=== PATIENT | male | born 1965 | race American Indian/Alaskan Native ===

== ENCOUNTER 2017-06-18 12:36 | Emergency (ER) | payer OTHER ==
[2017-06-18 12:48] VITALS: BP 168/96
[2017-06-18] MEDS ORDERED: MOTRIN PO ONE (13:00)
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
[2017-06-18] MEDS ORDERED: ULTRAM PO ONE (16:08)
[2017-06-18] MEDS ORDERED: ULTRAM ONE (16:08)
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
== END 2017-06-18 16:59 | disposition home or self-care (01) ==
LOC: ED 12:36
DX: S93.401A Sprain of unspecified ligament of right ankle, initial encounter (principal); I10 Essential (primary) hypertension; F17.200 Nicotine dependence, unspecified, uncomplicated; W18.30XA Fall on same level, unspecified, initial encounter; Y93.89 Activity, other specified; Y92.89 Other specified places as the place of occurrence of the external cause; Y99.8 Other external cause status
CPT/HCPCS: 99283

== ENCOUNTER 2017-10-01 10:40 | Emergency (ER) | payer SELFPAY ==
--- NOTE | 2017-10-01 10:53 | Emergency Department Report ---
ED Chest Pain HPI - General Stated Complaint: CHEST PAIN Time Seen by Provider: 10/01/17 10:40 Source: patient, EMS Mode of arrival: Stretcher Limitations: No Limitations - History of Present Illness Initial Comments: is a 52-year-old male presents emergency room with complaints of chest pain 1 day. Patient states that the pain is in his bilateral upper chest and radiates to his shoulders. Patient states that he is also having shoulder pain 1 day. Patient states that the chest pain is a 4 out of 10. Patient states that the shoulder pain is a 10 out of 10. Patient states that the shoulder pain is worse with movement and better with rest. Patient states that the chest pain is also better with rest and worse with exertion. Patient is a smoker. Patient also has a history of high blood pressure but does not take his medications due to not having insurance and not being able to afford doctors visit and prescriptions. Patient denies shortness of breath. Patient states that this morning he began to feel dizzy with movement and that is why he called EMS to be brought to the hospital for evaluation. -: Sudden Onset: during rest Pain Location: substernal Pain Radiation: RUE, LUE Severity: moderate Severity scale (0 -10): 4 Quality: aching, heaviness Consistency: constant Improves With: rest Worsens With: exertion re: denies: nausea, vomting, diaphoresis, dyspnea, sense of impending doom Other Symptoms: denies: cough, fever, syncope, rash, acid taste in mouth, leg swelling, palpitations, burping Treatments Prior to Arrival: aspirin, nitroglycerin Aspirin use within the Past 7 Days: (0) No - Related Data On Oral Contraceptives: No Previous Rx's Medication Instructions Recorded Last Taken Type HYDROcodone/APAP 7.5-325 [[place] 1 each PO Q6HR PRN #10 tablet 12/11/15 Unknown Rx 7.5/325] Ibuprofen [Motrin] 800 mg PO Q8HR PRN #30 tablet 12/11/15 Unknown Rx Ibuprofen [Motrin] 600 mg PO Q8H PRN #30 tablet 06/18/17 Unknown Rx Lisinopril/Hydrochlorothiazide 1 tab PO QDAY #60 tab 10/01/17 Unknown Rx [Zestoretic 20-12.5 mg] Allergies Allergy/AdvReac Type Severity Reaction Status Date / Time No Known Allergies Allergy Verified 12/11/15 19:56 Heart Score - HEART Score History: Moderately suspicious EKG: Non-specific Age: 45-65 Risk factors: 1-2 risk factors Troponin: < normal limit HEART Score: 4 ED Review of Systems ROS: Stated complaint: CHEST PAIN Other details as noted in HPI Constitutional: denies: chills, fever Eyes: denies: eye pain, eye discharge, vision change ENT: denies: ear pain, throat pain Respiratory: denies: cough, shortness of breath, wheezing Cardiovascular: denies: chest pain, palpitations Endocrine: no symptoms reported Gastrointestinal: denies: abdominal pain, nausea, diarrhea Genitourinary: denies: urgency, dysuria Musculoskeletal: denies: back pain, joint swelling, arthralgia Skin: denies: rash, lesions Neurological: denies: headache, weakness, paresthesias Psychiatric: denies: anxiety, depression Hematological/Lymphatic: denies: easy bleeding, easy bruising ED Past Medical Hx - Past Medical History Previous Medical History?: Yes Hx Hypertension: Yes Additional medical history: THYROID, right ankle surgery - Surgical History Past Surgical History?: Yes Additional Surgical History: RIGHT KNEE/RIGHT LEG / EYE, Right ankle surgery - Family History Family history: hypertension - Social History Smoking Status: Current Every Day Smoker Substance Use Type: Alcohol - Medications Home Medications: Home Medications Medication Instructions Recorded Confirmed Last Taken Type HYDROcodone/APAP 7.5-325 [[place] 1 each PO Q6HR PRN #10 tablet 12/11/15 Unknown Rx 7.5/325] Ibuprofen [Motrin] 800 mg PO Q8HR PRN #30 tablet 12/11/15 Unknown Rx Ibuprofen [Motrin] 600 mg PO Q8H PRN #30 tablet 06/18/17 Unknown Rx Lisinopril/Hydrochlorothiazide 1 tab PO QDAY #60 tab 10/01/17 Unknown Rx [Zestoretic 20-12.5 mg] ED Physical Exam - General Limitations: No Limitations General appearance: alert, in no apparent distress - Head Head exam: Present: atraumatic, normocephalic - Eye Eye exam: Present: normal appearance, PERRL Pupils: Present: normal accommodation - ENT ENT exam: Present: mucous membranes moist - Neck Neck exam: Present: normal inspection - Respiratory Respiratory exam: Present: normal lung sounds bilaterally. Absent: respiratory distress, chest wall tenderness, accessory muscle use, decreased breath sounds - Cardiovascular Cardiovascular Exam: Present: regular rate, normal rhythm. Absent: systolic murmur, diastolic murmur, rubs, gallop - GI/Abdominal GI/Abdominal exam: Present: soft, normal bowel sounds - Rectal Rectal exam: Present: deferred - Extremities Exam Extremities exam: Present: normal inspection, tenderness (over both shoulder joints) - Back Exam Back exam: Present: normal inspection - Neurological Exam Neurological exam: Present: alert, oriented X3 - Psychiatric Psychiatric exam: Present: normal affect, normal mood - Skin Skin exam: Present: warm, dry, intact, normal color. Absent: rash ED Course Vital Signs 10/01/17 10/01/17 10/01/17 10:46 11:50 14:48 Temperature 98 F Pulse Rate 72 78 Respiratory 20 16 16 Rate Blood Pressure 151/96 Blood Pressure 158/114 [Left] O2 Sat by Pulse 95 97 Oximetry 10/01/17 10/01/17 15:00 17:00 Temperature Pulse Rate 77 77 Respiratory 15 15 Rate Blood Pressure Blood Pressure 153/99 151/97 [Left] O2 Sat by Pulse 94 94 Oximetry - Reevaluation(s) Reevaluation #1: Patient complains of anxiety and panic attack and increase chest pain. Patient states now the chest pain is more substernal. We'll give patient ativan and morphine. 10/01/17 13:36 10/01/17 13:36 Reevaluation #2: Dr. Reeves, hospitalist consulted for admission. Dr. Reeves agrees to admit. Dr. Bingham to assume care patient. Discussed plan of care and admission with patient and patient agrees to plan of care. 10/01/17 13:57 CHING score - Ching Score Age > 65: (0) No Aspirin use within the Past 7 Days: (0) No 3 or more CAD Risk Factors: (0) No 2 or more Angina events in past 24 hrs: (0) No Known CAD with more than 50% Stenosis: (0) No Elevated Cardiac Markers: (0) No ST Deviation Greater than 0.5mm: (0) No CHING Score: 0 ED Medical Decision Making - Lab Data Result diagrams: 10/01/17 11:07 10/01/17 11:07 - EKG Data -: EKG Interpreted by Me EKG shows normal: sinus rhythm, axis, intervals, QRS complexes, ST-T waves Rate: normal - Radiology Data Radiology results: report reviewed CTA: No PE. Positive for 4.8cm Thoracic aorta aneurysm. - Medical Decision Making Patient is a 2-year-old milligrams emergency room with chest pain and shoulder pain. Chest pain workup so far is negative. Will admit patient to hospital for further evaluation and treatment. Patient also be admitted to rule out ACS - Differential Diagnosis acs. cp. anx.gerd./ htn Critical care attestation.: If time is entered above; I have spent that time in minutes in the direct care of this critically ill patient, excluding procedure time. ED Disposition Clinical Impression: Shoulder arthritis Chest pain Qualifiers: Chest pain type: unspecified Qualified Code(s): R07.9 - Chest pain, unspecified Bilateral shoulder pain Qualifiers: Chronicity: acute Qualified Code(s): M25.511 - Pain in right shoulder; M25.512 - Pain in left shoulder Aortic aneurysm Qualifiers: Aortic location: thoracic aorta Presence of rupture: without rupture Qualified Code(s): I71.2 - Thoracic aortic aneurysm, without rupture Disposition: 09 OP ADMIT IP TO THIS HOSP Is pt being admited?: Yes Does the pt Need Aspirin: No Condition: Serious Prescriptions: Lisinopril/Hydrochlorothiazide [Zestoretic 20-12.5 mg] 1 tab PO QDAY #60 tab Time of Disposition: 14:01
[2017-10-01 11:40] LABS: Basophils % (Auto) 0.8 % (0.0-1.8); Eosinophils # (Auto) 0.1 K/mm3 (0.0-0.4); Eosinophils % (Auto) 1.4 % (0.0-4.3); Hematocrit 43.8 % (35.5-45.6); Hemoglobin 15.1 gm/dl (11.8-15.2); Lymphocytes # (Auto) 0.8 K/mm3 (1.2-5.4); Mean Corpuscular HGB Conc 35 % (32-34); Mean Corpuscular Hemoglobin 32 pg (28-32); Mean Corpuscular Volume 92 fl (84-94); Monocytes # (Auto) 0.5 K/mm3 (0.0-0.8); Monocytes % (Auto) 9.8 % (0.0-7.3); Platelet Count 154 K/mm3 (140-440); Red Blood Count 4.75 M/mm3 (3.65-5.03); Red Cell Distribution Width 16.3 % (13.2-15.2)
[2017-10-01 11:48] LABS: Alanine Aminotransferase 18 units/L (7-56); BUN/Creatinine Ratio 14; Blood Urea Nitrogen 11 mg/dL (9-20); Calcium 9.3 mg/dL (8.4-10.2); Hemolysis Index 9
[2017-10-01 12:21] LABS: Bilirubin,Urine NEG (Negative); Blood,Urine SM (Negative); Color,Urine Yellow (Yellow); WBC,Urine < 1.0 /HPF (0.0-6.0)
[2017-10-01 12:30] LABS: Amphetamine Screen,Urine PRESUMPTIVE NEGATIVE; Benzodiazepines Screen,Urine PRESUMPTIVE NEGATIVE; Cocaine Screen,Urine PRESUMPTIVE NEGATIVE; Methadone Screen,Urine PRESUMPTIVE NEGATIVE; Opiate Screen,Urine PRESUMPTIVE NEGATIVE
[2017-10-01 12:51] LABS: Cannabinoid Screen,Urine PRESUMPTIVE POSITIVE
--- NOTE | 2017-10-01 12:53 | XRay Report ---
FINAL REPORT EXAM: XR SHOULDER BILAT 2+V HISTORY: joyce shoulder pain TECHNIQUE: Four views of the left shoulder. Three views of the right shoulder. PRIORS: None. FINDINGS: No fracture. No dislocation. There is diffuse osteopenia. No soft tissue abnormality. Mild degenerative changes of the bilateral glenohumeral joints are seen. Mild degenerative changes of the left acromioclavicular joint are seen. There is likely been prior right distal clavicle osteotomy. IMPRESSION: Early osteoarthritis of the shoulders.
[2017-10-01] MEDS ORDERED: ATIVAN IV ONE (13:34)
[2017-10-01] MEDS ORDERED: MORPHINE IV ONE (13:34)
--- NOTE | 2017-10-01 13:38 | XRay Report ---
FINAL REPORT EXAM: XR CHEST ROUTINE 2V HISTORY: Chest Pain TECHNIQUE: Frontal and lateral chest radiographs. PRIORS: None. FINDINGS: The lung bases were not completely included on the frontal view. There is prominence of the right hilar contour. No focal consolidation. The cardiac silhouette is nonenlarged. No pleural effusion. No pneumothorax. No acute osseous abnormality. IMPRESSION: Prominent right hilar contour may represent lymphadenopathy or a vascular abnormality. Recommend further evaluation with CT of the chest with contrast.
--- NOTE | 2017-10-01 13:50 | Cat Scan Report ---
FINAL REPORT EXAM: CT ANGIO CHEST HISTORY: cp. d-dimer TECHNIQUE: CTA of the chest was performed after the administration of intravenous contrast. Reconstructions were included in the coronal and sagittal planes. Rotating MIPS were included. PRIORS: Chest x-ray from earlier today. FINDINGS: Pulmonary arteries and thoracic aorta: The study is adequate for diagnostic purposes. No central or segmental pulmonary embolism. Ascending thoracic aortic aneurysm is seen measuring up to 4.8 centimeters AP. No evidence of aortic dissection. No evidence of aneurysm rupture. No penetrating ulcer. The descending thoracic aorta is at the upper limits of normal in caliber measuring 2.9 centimeters. The main pulmonary artery is dilated measuring up to 4.0 centimeters. Lungs and airways: No pleural effusion. No airspace consolidation. The airways are patent. No bronchiectasis. No pulmonary nodules or masses. Several subpleural blebs are seen in the lung apices. Mediastinum, heart, pericardium: No mediastinal lymphadenopathy. No cardiac chamber enlargement. No pericardial effusion. Thoracic inlet, chest wall, axilla: No chest wall masses. The thyroid gland is mildly diffusely enlarged. No axillary lymphadenopathy. Upper abdomen: There is a small hiatal hernia. There is wall thickening along the posterior aspect of the gastric fundus. Bones: No acute or chronic osseous finding. IMPRESSION: 1. 4.8 centimeter ascending thoracic aortic aneurysm. 2. Enlarged main pulmonary artery can be seen in pulmonary arterial hypertension. 3. Apparent thickening of the posterior aspect of the gastric fundus may represent residual food material versus gastric neoplasm. Recommend further evaluation with EGD when feasible. 4. Diffusely enlarged thyroid gland can be seen in goiter.
--- NOTE | 2017-10-01 14:10 | History and Physical Report ---
History of Present Illness Chief complaint: my chest hurts, I ran out of medication History of present illness: 52 YO Male with HTN, Nicotine Dependence, medication noncompliance presents to ED for evaluation of Atypical chest pain. Pt seen and evaluated in ED and treated IAW chest pain protocol. Serial cardiac enzyme, ekg, telemetry wer n ot indicative for acute ischemia. Pt found to have elevated D dimer, but CTA chest did not reveal PE. Pt found to have incidental finding of Aortic Aneurysm without dissection/flap at 4.8cm. Pt medically optimized and back to usual state of health. Pt signed out AMA prior to completion of workup. Pt instructed to f/u pcp 1 wk, as well as to have repeat CTA chest 3-6 months for reevaluation. Past History Past Medical History: hypertension Past Surgical History: thyroidectomy Social history: smoking Family history: no significant family history (reviewed) Medications and Allergies Allergies Allergy/AdvReac Type Severity Reaction Status Date / Time No Known Allergies Allergy Verified 12/11/15 19:56 Home Medications Medication Instructions Recorded Confirmed Last Taken Type HYDROcodone/APAP 7.5-325 [[place] 1 each PO Q6HR PRN #10 tablet 12/11/15 Unknown Rx 7.5/325] Ibuprofen [Motrin] 800 mg PO Q8HR PRN #30 tablet 12/11/15 Unknown Rx Ibuprofen [Motrin] 600 mg PO Q8H PRN #30 tablet 06/18/17 Unknown Rx Lisinopril/Hydrochlorothiazide 1 tab PO QDAY #60 tab 10/01/17 Unknown Rx [Zestoretic 20-12.5 mg] Review of Systems Constitutional: no weight loss, no weight gain, no fever, no chills Ears, nose, mouth and throat: no ear pain, no ear discharge, no tinnitis, no decreased hearing, no nasal congestion, no nasal discharge, no sinus pain Cardiovascular: no chest pain, no orthopnea, no palpitations, no rapid/ irregular heart beat Respiratory: no cough, no cough with sputum, no excessive sputum, no hemoptysis , no shortness of breath, no dyspnea on exertion Gastrointestinal: no nausea, no vomiting, no diarrhea Genitourinary Male: no dysuria, no hematuria, no urinary frequency, no nocturia , no erectile dysfunction Rectal: no pain, no incontinence, no bleeding Musculoskeletal: no neck stiffness, no neck pain, no shooting arm pain, no arm numbness/tingling, no low back pain, no leg numbness/tingling Integumentary: no rash, no pruritis, no redness, no sores, no wounds, no jaundice Neurological: no head injury, no transient paralysis, no paralysis, no weakness , no parathesias, no tingling, no seizures, no syncope Psychiatric: no anxiety, no memory loss, no change in sleep habits, no sleep disturbances, no insomnia, no hypersomnia, no change in appetite, no change in libido, no disorientation Endocrine: no cold intolerance, no heat intolerance, no polyphagia, no excessive thirst, no polyuria, no excessive sweating, no flushing Hematologic/Lymphatic: no easy bruising, no easy bleeding, no lymphadenopathy, no lymphedema Allergic/Immunologic: no urticaria, no allergic rhinitis, no wheezing, no persistent infections, no anaphylaxis, no angioedema Exam - Constitutional Vitals: Temp Pulse Resp BP Pulse Ox 98 F 72 16 151/96 95 10/01/17 10:46 10/01/17 10:46 10/01/17 11:50 10/01/17 10:46 10/01/17 10:46 General appearance: Present: no acute distress, well-nourished - EENT Eyes: Present: PERRL ENT: hearing intact, clear oral mucosa - Neck Neck: Present: supple, normal ROM - Respiratory Respiratory effort: normal Respiratory: bilateral: CTA - Cardiovascular Heart Sounds: Present: S1 & S2. Absent: rub, click - Extremities Extremities: pulses symmetrical, No edema Peripheral Pulses: within normal limits - Abdominal General gastrointestinal: Present: soft, non-tender, non-distended, normal bowel sounds Male genitourinary: Present: normal - Integumentary Integumentary: Present: clear, warm, dry - Musculoskeletal Musculoskeletal: gait normal, strength equal bilaterally - Psychiatric Psychiatric: appropriate mood/affect, intact judgment & insight - Neurologic Neurologic: CNII-XII intact, moves all extremities Results - Labs CBC & Chem 7: 10/01/17 11:07 10/01/17 11:07 Labs: Abnormal lab results 10/01/17 10/01/17 10/01/17 Range/Units 11:07 11:07 11:07 MCHC 35 H (32-34) % RDW 16.3 H (13.2-15.2) % Baker % (Auto) 9.8 H (0.0-7.3) % Lymph # 0.8 L (1.2-5.4) K/mm3 Seg Neutrophils % 74.0 H (40.0-70.0) % D-Dimer 240.91 H (0-234) ng/mlDDU Potassium 3.3 L (3.6-5.0) mmol/L Total Bilirubin 1.40 H (0.1-1.2) mg/dL Assessment and Plan - Patient Problems (1) Atypical chest pain Status: Acute Plan to address problem: serial cardiac enzymes, ekg, telemetry, d dimer, CTA chest. Pt left AMA (2) Aortic aneurysm Status: Acute Qualifiers: Aortic location: thoracic aorta Presence of rupture: without rupture Qualified Code(s): I71.2 - Thoracic aortic aneurysm, without rupture Plan to address problem: repeat CTA chest 3-6 months (3) Bilateral shoulder pain Status: Acute Qualifiers: Chronicity: acute Qualified Code(s): M25.511 - Pain in right shoulder; M25.512 - Pain in left shoulder Plan to address problem: nsaid therapy
[2017-10-01] MEDS ORDERED: HCTZ PO ONE (14:13)
[2017-10-01] MEDS ORDERED: ZESTRIL PO ONE (14:13)
[2017-10-01 17:02] VITALS: BP 151/97
== END 2017-10-01 17:39 | disposition admitted as inpatient to this hospital (09) ==
LOC: ED 10:40
DX: I71.2 Thoracic aortic aneurysm, without rupture (principal); M25.511 Pain in right shoulder; M25.512 Pain in left shoulder; I10 Essential (primary) hypertension; F17.200 Nicotine dependence, unspecified, uncomplicated
CPT/HCPCS: 36415; 71046; 71275; 73030; 80053; 80307; 81001; 84484; 85025; 85379; 93005; 93010; 96374; 96375; 99285; J2060; J2270; Q9967

== ENCOUNTER 2020-06-28 07:10 | Emergency (ER) | payer SELFPAY ==
--- NOTE | 2020-06-28 07:44 | Emergency Department Report ---
ED Extremity Problem HPI - General Stated complaint: R LEG PAIN - History of Present Illness Initial comments: Is a pleasant 55-year-old male who presents the emergency department chief complaint of right lateral knee pain over the past 2 days. Patient reports he was walking to the store and started to feel the pain shortly after. He denies any specific injuries. He does report he has had an ORIF of the leg with rods in the past. He denies any other associated symptoms such as fever, chills, sweats, headache, dizziness, blurry vision, nausea, vomiting, diarrhea, chest pain, shortness of breath, weakness or any other associated symptoms. Pain is 10 out of 10 describes dull and throbbing and located to the lateral side of the knee. - Related Data Previous Rx's Medication Instructions Recorded Last Taken Type HYDROcodone/APAP 7.5-325 [[place] 1 each PO Q6HR PRN #10 tablet 12/11/15 Unknown Rx 7.5/325] Ibuprofen [Motrin] 800 mg PO Q8HR PRN #30 tablet 12/11/15 Unknown Rx Ibuprofen [Motrin] 600 mg PO Q8H PRN #30 tablet 06/18/17 Unknown Rx Lisinopril/Hydrochlorothiazide 1 tab PO QDAY #60 tab 10/01/17 Unknown Rx [Zestoretic 20-12.5 mg] Naproxen 500 mg PO BID #20 tablet 06/28/20 Unknown Rx traMADoL [Ultram 50 MG tab] 50 mg PO Q6HR PRN #12 tablet 06/28/20 Unknown Rx Allergies Allergy/AdvReac Type Severity Reaction Status Date / Time No Known Allergies Allergy Verified 12/11/15 19:56 ED Review of Systems ROS: Stated complaint: R LEG PAIN Other details as noted in HPI Comment: All other systems reviewed and negative Constitutional: denies: chills, fever Eyes: denies: eye pain, eye discharge, vision change ENT: denies: ear pain, throat pain Respiratory: denies: cough, shortness of breath, wheezing Cardiovascular: denies: chest pain, palpitations Endocrine: no symptoms reported Gastrointestinal: denies: abdominal pain, nausea, diarrhea Genitourinary: denies: urgency, dysuria Musculoskeletal: as per HPI, arthralgia. denies: back pain, joint swelling Skin: denies: rash, lesions Neurological: denies: headache, weakness, paresthesias Psychiatric: denies: anxiety, depression Hematological/Lymphatic: denies: easy bleeding, easy bruising ED Past Medical Hx - Past Medical History Hx Hypertension: Yes Additional medical history: THYROID, right ankle surgery - Surgical History Additional Surgical History: RIGHT KNEE/RIGHT LEG / EYE, Right ankle surgery - Social History Smoking Status: Current Every Day Smoker Substance Use Type: Alcohol - Medications Home Medications: Home Medications Medication Instructions Recorded Confirmed Last Taken Type HYDROcodone/APAP 7.5-325 [[place] 1 each PO Q6HR PRN #10 tablet 12/11/15 Unknown Rx 7.5/325] Ibuprofen [Motrin] 800 mg PO Q8HR PRN #30 tablet 12/11/15 Unknown Rx Ibuprofen [Motrin] 600 mg PO Q8H PRN #30 tablet 06/18/17 Unknown Rx Lisinopril/Hydrochlorothiazide 1 tab PO QDAY #60 tab 10/01/17 Unknown Rx [Zestoretic 20-12.5 mg] Naproxen 500 mg PO BID #20 tablet 06/28/20 Unknown Rx traMADoL [Ultram 50 MG tab] 50 mg PO Q6HR PRN #12 tablet 06/28/20 Unknown Rx ED Physical Exam - General General appearance: alert, in no apparent distress - Head Head exam: Present: atraumatic, normocephalic - Eye Eye exam: Present: normal appearance, PERRL, EOMI Pupils: Present: normal accommodation - ENT ENT exam: Present: normal exam, normal orophraynx, mucous membranes moist - Neck Neck exam: Present: normal inspection, full ROM. Absent: tenderness, meningismus - Respiratory Respiratory exam: Present: normal lung sounds bilaterally. Absent: respiratory distress, wheezes, rales, rhonchi, stridor - Cardiovascular Cardiovascular Exam: Present: regular rate, normal rhythm, normal heart sounds. Absent: systolic murmur, diastolic murmur, rubs, gallop - GI/Abdominal GI/Abdominal exam: Present: soft, normal bowel sounds. Absent: distended, tenderness, guarding, rebound, rigid - Rectal Rectal exam: Present: deferred - Extremities Exam Extremities exam: Present: normal inspection, full ROM, tenderness (Tenderness palpation to the lateral right knee. Surgical scar over the lateral right knee. Pain with range of motion. Pain with varus strain. No posterior calf tenderness, normal DP and PT pulses. No tenderness to the hip or ankle. No deformity.), normal capillary refill, other (Negative Homans' sign bilaterally). Absent: calf tenderness - Back Exam Back exam: Present: normal inspection, full ROM. Absent: tenderness, CVA tenderness (R), CVA tenderness (L), muscle spasm, paraspinal tenderness, vertebral tenderness - Neurological Exam Neurological exam: Present: alert, oriented X3, normal gait - Psychiatric Psychiatric exam: Present: normal affect, normal mood - Skin Skin exam: Present: warm, dry, intact, normal color. Absent: rash ED Course Vital Signs 06/28/20 07:39 Temperature 97.6 F Pulse Rate 83 Respiratory 18 Rate Blood Pressure 151/76 O2 Sat by Pulse 96 Oximetry ED Medical Decision Making - Radiology Data Radiology results: report reviewed Ordering Physician: ADELINE GUILLORY Date of Service: 06/28/20 Procedure(s): XR knee 3V RT Accession Number(s): [id number] cc: ADELINE GUILLORY Fluoro Time In Minutes: RIGHT KNEE 4 VIEWS 0800 INDICATION: pain to lateral right knee COMPARISON: None available FINDINGS: Surgical changes are seen in the tibia with plate and screws and intramedullary ana laura. Moderate degenerative changes are seen mostly affecting the patellofemoral and lateral compartments. Lateral joint space narrowing is noted. Medial ligamentous calcifications are seen. No fractures or dislocations are noted. Small joint effusion is seen. Signer Name: Yusuf Abraham MD Signed: 06/28/2020 8:37 AM Workstation Name: [id number] Transcribed By: GJ Dictated By: Yusuf Abraham MD Electronically Authenticated By: Yusuf Abraham MD Signed Date/Time: 06/28/20 0837 - Medical Decision Making Patient nontoxic in no acute distress. He had no posterior calf tenderness, normal DP and PT pulses and a negative Homans' sign making DVT unlikely. He also had a very low Wells risk for DVT. Patient had normal pedal pulses making ischemic leg unlikely. He had no rashes or signs of cellulitis. His exam was consistent with a lateral collateral ligament injury versus severe osteoarthritis. 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 We will treat the patient with anti-inflammatory pain medication and recommended orthopedic follow-up. He is instructed to return to the ER with any change or worsening symptoms. He verbalized understand the diagnosis, treatment and follow-up instructions and all his questions were answered. - Differential Diagnosis Osteoarthritis, DVT, sprain Critical care attestation.: If time is entered above; I have spent that time in minutes in the direct care of this critically ill patient, excluding procedure time. ED Disposition Clinical Impression: Right knee sprain Qualifiers: Encounter type: initial encounter Involved ligament of knee: lateral collateral ligament Qualified Code(s): S83.421A - Sprain of lateral collateral ligament of right knee, initial encounter Disposition: TO HOME OR SELFCARE Is pt being admited?: No Condition: Stable Instructions: Knee Sprain, Adult, [id number] Prescriptions: Naproxen 500 mg PO BID #20 tablet traMADoL [Ultram 50 MG tab] 50 mg PO Q6HR PRN #12 tablet PRN Reason: Pain Referrals: PRIMARY CAREMD [Primary Care Provider] - 3-5 Days BITA ALLEN MD [Staff Physician] - 3-5 Days Time of Disposition: 09:36
[2020-06-28 07:45] VITALS: BP 151/76
--- NOTE | 2020-06-28 08:42 | XRay Report ---
RIGHT KNEE 4 VIEWS 0800 INDICATION: pain to lateral right knee COMPARISON: None available FINDINGS: Surgical changes are seen in the tibia with plate and screws and intramedullary ana laura. Modera te degenerative changes are seen mostly affecting the patellofemoral and lateral compartments. Latera l joint space narrowing is noted. Medial ligamentous calcifications are seen. No fractures or disloca tions are noted. Small joint effusion is seen. Signer Name: Yusuf Abraham MD Signed: 06/28/2020 8:37 AM Workstation Name: [id number]
[2020-06-28] MEDS ORDERED: IBUPROFEN 600 MG TAB PO ONE (09:58)
== END 2020-06-28 10:19 | disposition home or self-care (01) ==
LOC: ED 07:10
DX: S83.421A Sprain of lateral collateral ligament of right knee, initial encounter (principal); I10 Essential (primary) hypertension; F17.200 Nicotine dependence, unspecified, uncomplicated; Z79.899 Other long term (current) drug therapy; Z98.890 Other specified postprocedural states; X58.XXXA Exposure to other specified factors, initial encounter; Y93.01 Activity, walking, marching and hiking; Y92.89 Other specified places as the place of occurrence of the external cause; Y99.8 Other external cause status

== ENCOUNTER 2020-08-21 07:29 | Emergency (ER) | payer SELFPAY ==
[2020-08-21 07:38] VITALS: BP 144/78
[2020-08-21] MEDS ORDERED: ALBUTEROL 2.5 MG/3 ML NEBU IH ONE (08:39)
--- NOTE | 2020-08-21 08:39 | Event Note ---
ED Screening Note ED Screening Note: WHEEZING COUGH CHILLS NO COVID IMMUNIZ RX OUT OF ALL MEDS FOR ASTHMA AND HTN PMH ASTHMA HTN CIG OCC ETOH PSH MINOR YEARS This initial assessment/diagnostic orders/clinical plan/treatment(s) is/are subject to change based on patients health status, clinical progression and re- assessment by fellow clinical providers in the ED. Further treatment and workup at subsequent clinical providers discretion. Patient/guardian urged not to elope from the ED as their condition may be serious if not clinically assessed and managed. Initial orders include: XR DUONEB
--- NOTE | 2020-08-21 09:08 | XRay Report ---
CHEST 2 VIEWS INDICATION: WHEEZING COUGH. COMPARISON: CT chest 10/01/2017 FINDINGS: Support devices: None. Heart: Heart size is normal. Mildly dilated ascending aorta is again suggested on x-ray. No mediastin al mass or adenopathy. Lungs/pleura: No acute air space or interstitial disease. No pneumothorax. Additional findings: None. IMPRESSION: No acute findings. Slightly prominent ascending aorta. Lungs clear. Signer Name: Charles Gomes Jr, MD Signed: 08/21/2020 9:04 AM Workstation Name: [id number]
[2020-08-21 10:11] LABS: Hematocrit 43.5 % (35.5-45.6); Hemoglobin 14.9 gm/dl (11.8-15.2); Mean Corpuscular HGB Conc 34 % (32-34); Mean Corpuscular Volume 99 fl (84-94); Platelet Count 147 K/mm3 (140-440); Red Cell Distribution Width 14.7 % (13.2-15.2)
[2020-08-21 10:36] LABS: Alanine Aminotransferase 28 units/L (7-56); Albumin 4.5 g/dL (3.9-5); BUN/Creatinine Ratio 13; Blood Urea Nitrogen 12 mg/dL (9-20); Calcium 8.7 mg/dL (8.4-10.2); Hemolysis Index 4
[2020-08-21] MEDS ORDERED: predniSONE 20 MG TAB PO ONE (10:48)
--- NOTE | 2020-08-21 10:51 | Emergency Department Report ---
Minor Respiratory - HPI Chief Complaint: Dyspnea/Respdistress Stated Complaint: SOB Time Seen by Provider: 08/21/20 10:48 Duration: 3 Days Pain Location: Chest Severity: mild Minor Respiratory: Yes Able to Tolerate Fluids, Yes Cough, Yes Shortness of Breath, No Rhinorrhea, No Sore Throat, No Ear Pain, No Sick Contacts, No Hemoptysis, No Chest Pain, No Fever Other History: It is a 55-year-old male that comes to the emergency room complaining of shortness of breath. He is well-known to us and here for recurrent asthma. He brings with him his numerous bags I believe he is homeless. ED Review of Systems ROS: Stated complaint: SOB Other details as noted in HPI Comment: All other systems reviewed and negative ED Past Medical Hx - Past Medical History Previous Medical History?: Yes Hx Hypertension: Yes Hx Asthma: Yes Additional medical history: THYROID, right ankle surgery - Surgical History Past Surgical History?: Yes Additional Surgical History: RIGHT KNEE/RIGHT LEG / EYE, Right ankle surgery - Family History Family history: no significant - Social History Smoking Status: Current Every Day Smoker Substance Use Type: Alcohol - Medications Home Medications: Home Medications Medication Instructions Recorded Confirmed Last Taken Type Lisinopril/Hydrochlorothiazide 1 tab PO QDAY #60 tab 10/01/17 Unknown Rx [Zestoretic 20-12.5 mg] traMADoL [Ultram 50 MG tab] 50 mg PO Q6HR PRN #12 tablet 06/28/20 Unknown Rx Albuterol Sulfate [Proventil Hfa] 6.7 gm IH Q4HR PRN #1 hfa.aer.ad 08/21/20 Unknown Rx Cetirizine HCl [ZyrTEC] 10 mg PO DAILY #30 capsule 08/21/20 Unknown Rx Fluticasone [Flonase] 1 spray NS QDAY #1 bottle 08/21/20 Unknown Rx predniSONE [Deltasone] 20 mg PO DAILY #5 tablet 08/21/20 Unknown Rx Minor Respiratory Exam - Exam General: Vital signs noted. No distress. Alert and acting appropriately. HEENT: Yes Moist Mucous Membranes, No Pharyngeal Erythema, No Pharyngeal Exudates, No Rhinorrhea, No Conjuctival Injection, No Frontal Tenderness, No Maxillary Tenderness Ear: Neither TM Bulge, Neither TM Erythema, Neither EAC Pain, Neither EAC Discharge Neck: Yes Supple, No Adenopathy Lungs: Yes Good Air Exchange, Yes Wheezes, No Ronchi, No Stridor, No Cough, No Labored Respirations, No Retractions, No Use of Accessory Muscles, No Other Abnormal Lung Sounds Heart: Yes Regular, No Murmur Abdomen: Yes Normal Bowel Sounds, No Tenderness, No Peritoneal Signs Skin: No Rash, No Edema Neurologic: Alert and oriented, no deficits. Musculoskeletal: Unremarkable. ED Course Vital Signs 08/21/20 07:33 Temperature 98.3 F Pulse Rate 99 H Respiratory 20 Rate Blood Pressure 144/78 [Right] O2 Sat by Pulse 96 Oximetry - Reevaluation(s) Reevaluation #1: 08/21/20 10:55 CAN NOT LOCATE PT IN WAITING ROOMS. CALLED SEVERAL TIMES ED Medical Decision Making - Lab Data Result diagrams: 08/21/20 09:30 08/21/20 09:30 - Radiology Data Radiology results: report reviewed, image reviewed - Medical Decision Making Labs 08/21/20 08/21/20 09:30 09:30 WBC 5.8 RBC 4.40 Hgb 14.9 Hct 43.5 MCV 99 H MCH 34 H MCHC 34 RDW 14.7 Plt Count 147 Sodium 140 Potassium 3.7 Chloride 102.6 Carbon Dioxide 24 Anion Gap 17 BUN 12 Creatinine 0.9 Estimated GFR > 60 BUN/Creatinine Ratio 13 Glucose 86 Calcium 8.7 Total Bilirubin 0.70 AST 41 H ALT 28 Alkaline Phosphatase 79 Troponin T < 0.010 Total Protein 7.4 Albumin 4.5 Albumin/Globulin Ratio 1.6 Vital Signs 08/21/20 07:33 Temperature 98.3 F Pulse Rate 99 H Respiratory 20 Rate Blood Pressure 144/78 [Right] O2 Sat by Pulse 96 Oximetry Labs noted. X-ray noted. When attempting to find patient for disposition he could not be located. We have looked any waiting rooms numerous times and he is not answering to any pages. - Differential Diagnosis Rule out pneumonia/CHF Critical care attestation.: If time is entered above; I have spent that time in minutes in the direct care of this critically ill patient, excluding procedure time. ED Disposition Clinical Impression: Asthma with acute exacerbation, Nonadherence to medication Disposition: Z-07 ELOPED Is pt being admited?: No Does the pt Need Aspirin: No Condition: Stable Instructions: Asthma, Adult Additional Instructions: MEDS ORDERED FOLLOW UP WITH PCP REFERRAL BELOW Prescriptions: predniSONE [Deltasone] 20 mg PO DAILY #5 tablet Fluticasone [Flonase] 1 spray NS QDAY #1 bottle Albuterol Sulfate [Proventil Hfa] 6.7 gm IH Q4HR PRN #1 hfa.aer.ad PRN Reason: Wheezing Cetirizine HCl [ZyrTEC] 10 mg PO DAILY #30 capsule Referrals: JENAE MARIE MD [Staff Physician] - 3-5 Days Time of Disposition: 10:53
== END 2020-08-21 11:00 | disposition left against medical advice (07) ==
LOC: ED 07:29
DX: J45.901 Unspecified asthma with (acute) exacerbation (principal); Z91.14 Patient's other noncompliance with medication regimen; I10 Essential (primary) hypertension; F17.200 Nicotine dependence, unspecified, uncomplicated; Z98.890 Other specified postprocedural states; Z72.89 Other problems related to lifestyle; Z79.899 Other long term (current) drug therapy
CPT/HCPCS: 36415; 71046; 80053; 84484; 85027; 93005; 99283

== ENCOUNTER 2021-08-27 06:03 | Emergency (ER) | payer SELFPAY ==
[2021-08-27 06:28] VITALS: BP 160/100
--- NOTE | 2021-08-27 13:58 | Emergency Department Report ---
ED Back Pain/Injury HPI - General Chief Complaint: Back Pain/Injury Stated Complaint: SEVERE BACK PAIN X 1MONTH Source: EMS Limitations: No Limitations - History of Present Illness Initial Comments: 56-year-old male presents to the ED complaining of low back pain x1 month. Patient states that he has been taking ibuprofen with mild relief for pain. Patient states that last dose of ibuprofen was on yesterday. Patient stated occasional pain right down his leg. Patient states that pain is a 5 out of 10 .He denies any numbness tingling sensation ,states that he used to do a lot of heavy lifting and walking when he was employed. Patient has no obvious deformity, no distracting injury, no edema noted. Patient is ambulatory. MD Complaint: back pain Onset/Timin -: month(s) Similar Symptoms Previously: Yes Quality: aching Consistency: constant Improves With: none Worsens With: none Associated Symptoms: denies other symptoms - Related Data Previous Rx's Medication Instructions Recorded Last Taken Type Lisinopril/Hydrochlorothiazide 1 tab PO QDAY #60 tab 10/01/17 Unknown Rx [Zestoretic 20-12.5 mg] traMADoL [Ultram 50 MG tab] 50 mg PO Q6HR PRN #12 tablet 06/28/20 Unknown Rx Albuterol Sulfate [Proventil Hfa] 6.7 gm IH Q4HR PRN #1 hfa.aer.ad 08/21/20 Unknown Rx Cetirizine HCl [ZyrTEC] 10 mg PO DAILY #30 capsule 08/21/20 Unknown Rx Fluticasone [Flonase] 1 spray NS QDAY #1 bottle 08/21/20 Unknown Rx predniSONE [Deltasone] 20 mg PO DAILY #5 tablet 08/21/20 Unknown Rx Naproxen [Naprosyn] 500 mg PO BID 15 Days #30 tablet 08/27/21 Unknown Rx predniSONE [Deltasone] 20 mg PO QDAY 5 Days #5 tab 08/27/21 Unknown Rx Allergies Allergy/AdvReac Type Severity Reaction Status Date / Time No Known Allergies Allergy Verified 12/11/15 19:56 ED Review of Systems ROS: Stated complaint: SEVERE BACK PAIN X 1MONTH Other details as noted in HPI Constitutional: denies: chills, fever Eyes: denies: eye pain, eye discharge, vision change ENT: denies: ear pain, throat pain Respiratory: denies: cough, shortness of breath, wheezing Cardiovascular: denies: chest pain, palpitations Endocrine: no symptoms reported Gastrointestinal: denies: abdominal pain, nausea, diarrhea Genitourinary: denies: urgency, dysuria Musculoskeletal: back pain. denies: joint swelling, arthralgia Skin: denies: rash, lesions Neurological: denies: headache, weakness, paresthesias Psychiatric: denies: anxiety, depression Hematological/Lymphatic: denies: easy bleeding, easy bruising ED Past Medical Hx - Past Medical History Previous Medical History?: Yes Hx Hypertension: Yes Hx Asthma: Yes Additional medical history: THYROID, right ankle surgery - Surgical History Past Surgical History?: Yes Additional Surgical History: RIGHT KNEE/RIGHT LEG / EYE, Right ankle surgery - Social History Smoking Status: Never Smoker Substance Use Type: None - Medications Home Medications: Home Medications Medication Instructions Recorded Confirmed Last Taken Type Lisinopril/Hydrochlorothiazide 1 tab PO QDAY #60 tab 10/01/17 Unknown Rx [Zestoretic 20-12.5 mg] traMADoL [Ultram 50 MG tab] 50 mg PO Q6HR PRN #12 tablet 06/28/20 Unknown Rx Albuterol Sulfate [Proventil Hfa] 6.7 gm IH Q4HR PRN #1 hfa.aer.ad 08/21/20 Unknown Rx Cetirizine HCl [ZyrTEC] 10 mg PO DAILY #30 capsule 08/21/20 Unknown Rx Fluticasone [Flonase] 1 spray NS QDAY #1 bottle 08/21/20 Unknown Rx predniSONE [Deltasone] 20 mg PO DAILY #5 tablet 08/21/20 Unknown Rx Naproxen [Naprosyn] 500 mg PO BID 15 Days #30 tablet 08/27/21 Unknown Rx predniSONE [Deltasone] 20 mg PO QDAY 5 Days #5 tab 08/27/21 Unknown Rx ED Physical Exam - General Limitations: No Limitations ED Course Vital Signs 08/27/21 08/27/21 06:23 14:23 Temperature 98.9 F Pulse Rate 98 H 90 Respiratory 18 18 Rate Blood Pressure 160/100 Blood Pressure 160/100 [Right] O2 Sat by Pulse 99 99 Oximetry ED Medical Decision Making - Medical Decision Making 56-year-old male presents to the ED complaining of low back pain x1 month. Patient states that he has been taking ibuprofen with mild relief for pain. Patient states that last dose of ibuprofen was on yesterday. Patient stated occasional pain right down his leg. Patient states that pain is a 5 out of 10 .He denies any numbness tingling sensation ,states that he used to do a lot of heavy lifting and walking when he was employed. Patient has no obvious deformity, no distracting injury, no edema noted. Patient is ambulatory. Physical examination is unremarkable. Rechecked the patient is resting quietly quietly and comfortable and feeling better. I discussed the results of diagnostic study, my clinical impression and the plan for further treatment with the patient. Patient agrees with plan and discharge at this present time. All question addressed. I have given the patient instruction regarding a diagnosis ,expectation ,follow- up and return precaution. I explained to the patient that emergent condition may arise and to return to the ED for new worsen and any new persisting condition. I have explained the importance of following up with the primary care physician or referral physician listed below has instructed. The patient verbalized understanding of discharge instruction. Critical care attestation.: If time is entered above; I have spent that time in minutes in the direct care of this critically ill patient, excluding procedure time. ED Disposition Clinical Impression: Low back pain with sciatica Qualifiers: Chronicity: acute Back pain laterality: bilateral Sciatica laterality: sciatica laterality unspecified Qualified Code(s): M54.40 - Lumbago with sciatica, unspecified side Disposition: 01 HOME / SELF CARE / HOMELESS Is pt being admited?: No Does the pt Need Aspirin: No Condition: Stable Instructions: Sciatica, Oflp-[id number] Additional Instructions: Take medication as prescribed Return ED for any worsening symptom [address] [place] [address] for Alcohol Detoxification Prescriptions: predniSONE [Deltasone] 20 mg PO QDAY 5 Days #5 tab Naproxen [Naprosyn] 500 mg PO BID 15 Days #30 tablet Referrals: JENAE MARIE MD [Primary Care Provider] - 3-5 Days [facility] [Provider Group] - 3-5 Days Time of Disposition: 14:08
[2021-08-27] MEDS ORDERED: KETOROLAC 30 MG/1 ML INJ IM ONE (13:59)
[2021-08-27] MEDS ORDERED: dexAMETHasone 20 MG/5 ML VIAL IM ONE (14:00)
== END 2021-08-27 14:23 | disposition home or self-care (01) ==
LOC: ED 06:03
DX: M54.40 Lumbago with sciatica, unspecified side (principal); I10 Essential (primary) hypertension; J45.909 Unspecified asthma, uncomplicated
CPT/HCPCS: 96372; 99283; J1100; J1885

== ENCOUNTER 2021-08-28 01:48 | Emergency (ER) | payer SELFPAY ==
[2021-08-28] MEDS ORDERED: LORazepam 2 MG/ML VIAL IV PRN ×2 (08:00)
[2021-08-28] MEDS ORDERED: THIAMINE 100 MG, FOLIC ACID 1 MG, MULTIPLE VITAMIN INJ, ADULT 10 ML in SODIUM CHLORIDE ... IV ONE (08:30)
[2021-08-28 08:36] LABS: Hematocrit 41.5 % (35.5-45.6); Hemoglobin 14.2 gm/dl (11.8-15.2); Mean Corpuscular HGB Conc 34 % (32-34); Mean Corpuscular Volume 99 fl (84-94); Platelet Count 192 K/mm3 (140-440); Red Blood Count 4.21 M/mm3 (3.65-5.03); Red Cell Distribution Width 14.9 % (13.2-15.2)
[2021-08-28 08:51] LABS: Bilirubin,Urine NEG (Negative); Blood,Urine NEG (Negative); Color,Urine Yellow (Yellow); Mucus,Urine FEW /HPF; Protein,Urine <15 mg/dL mg/dL (Negative); RBC,Urine < 1.0 /HPF (0.0-6.0); Urobilinogen,Urine < 2.0 mg/dL (<2.0)
[2021-08-28 09:00] LABS: Amphetamine Screen,Urine Negative; Benzodiazepines Screen,Urine Negative; Cocaine Screen,Urine Negative; Methadone Screen,Urine Negative; Opiate Screen,Urine Negative
[2021-08-28 09:10] LABS: BUN/Creatinine Ratio 15; Blood Urea Nitrogen 15 mg/dL (9-20); Calcium 9.5 mg/dL (8.4-10.2); Hemolysis Index 9
[2021-08-28 09:15] LABS: Cannabinoid Screen,Urine Positive
--- NOTE | 2021-08-28 09:35 | Emergency Department Report ---
ED Alcohol HPI - General Chief Complaint: Medical Clearance Stated Complaint: MEDICAL CLEARANCE Time Seen by Provider: 08/28/21 07:40 Source: patient Mode of arrival: Ambulatory Limitations: No Limitations - History of Present Illness Initial Comments: 56-year-old male with a past medical history of asthma, thyroid disease, hypertension, and alcohol abuse presents to the hospital with complaints of needing alcohol detox. Patient was here yesterday for back pain, discharge, then went to [place] to request admission for alcohol detox. Patient drinks beer daily and has several beers prior to going to [place]. He waited 8 hours, took a breathalyzer, was told his alcohol level was 0 and therefore he need to come to the hospital for "1012" in order to be admission since he was not acutely intoxicated. Patient appears tremulous upon examination. He denies history of alcohol withdrawal seizures. Patient denies suicidal ideation, homicidal ideation, or hallucination. - Related Data Previous Rx's Medication Instructions Recorded Last Taken Type Lisinopril/Hydrochlorothiazide 1 tab PO QDAY #60 tab 10/01/17 Unknown Rx [Zestoretic 20-12.5 mg] traMADoL [Ultram 50 MG tab] 50 mg PO Q6HR PRN #12 tablet 06/28/20 Unknown Rx Albuterol Sulfate [Proventil Hfa] 6.7 gm IH Q4HR PRN #1 hfa.aer.ad 08/21/20 Unknown Rx Cetirizine HCl [ZyrTEC] 10 mg PO DAILY #30 capsule 08/21/20 Unknown Rx Fluticasone [Flonase] 1 spray NS QDAY #1 bottle 08/21/20 Unknown Rx predniSONE [Deltasone] 20 mg PO DAILY #5 tablet 08/21/20 Unknown Rx Naproxen [Naprosyn] 500 mg PO BID 15 Days #30 tablet 08/27/21 Unknown Rx predniSONE [Deltasone] 20 mg PO QDAY 5 Days #5 tab 08/27/21 Unknown Rx chlordiazePOXIDE [Librium] 25 dose PO DAILY #20 cap 08/28/21 Unknown Rx Allergies Allergy/AdvReac Type Severity Reaction Status Date / Time No Known Allergies Allergy Verified 12/11/15 19:56 ED Review of Systems ROS: Stated complaint: MEDICAL CLEARANCE Other details as noted in HPI Comment: All other systems reviewed and negative ED Past Medical Hx - Past Medical History Previous Medical History?: Yes Hx Hypertension: Yes Hx Asthma: Yes Additional medical history: THYROID, SLEEP MEDICATIONS - Surgical History Past Surgical History?: Yes Additional Surgical History: RIGHT KNEE/RIGHT LEG / EYE, Right ankle surgery - Social History Smoking Status: Current Every Day Smoker Substance Use Type: Alcohol - Medications Home Medications: Home Medications Medication Instructions Recorded Confirmed Last Taken Type Lisinopril/Hydrochlorothiazide 1 tab PO QDAY #60 tab 10/01/17 Unknown Rx [Zestoretic 20-12.5 mg] traMADoL [Ultram 50 MG tab] 50 mg PO Q6HR PRN #12 tablet 06/28/20 Unknown Rx Albuterol Sulfate [Proventil Hfa] 6.7 gm IH Q4HR PRN #1 hfa.aer.ad 08/21/20 Unknown Rx Cetirizine HCl [ZyrTEC] 10 mg PO DAILY #30 capsule 08/21/20 Unknown Rx Fluticasone [Flonase] 1 spray NS QDAY #1 bottle 08/21/20 Unknown Rx predniSONE [Deltasone] 20 mg PO DAILY #5 tablet 08/21/20 Unknown Rx Naproxen [Naprosyn] 500 mg PO BID 15 Days #30 tablet 08/27/21 Unknown Rx predniSONE [Deltasone] 20 mg PO QDAY 5 Days #5 tab 08/27/21 Unknown Rx chlordiazePOXIDE [Librium] 25 dose PO DAILY #20 cap 08/28/21 Unknown Rx ED Physical Exam - General Limitations: No Limitations ED Course Vital Signs 08/28/21 08/28/21 08/28/21 03:43 08:18 09:14 Temperature 98.4 F 97.7 F Pulse Rate 99 H 85 80 Respiratory 18 14 15 Rate Blood Pressure 172/95 Blood Pressure 139/86 133/84 [Right] O2 Sat by Pulse 92 95 96 Oximetry 08/28/21 08/28/21 08/28/21 10:05 10:58 13:22 Temperature Pulse Rate 82 65 75 Respiratory 14 14 15 Rate Blood Pressure Blood Pressure 164/82 148/88 130/84 [Right] O2 Sat by Pulse 98 96 99 Oximetry 08/28/21 13:56 Temperature Pulse Rate 71 Respiratory 15 Rate Blood Pressure Blood Pressure 150/94 [Right] O2 Sat by Pulse 97 Oximetry - Reevaluation(s) Reevaluation #1: 08/28/21 14:16 CIWA 0. pt does will be d/stephane with outpatient detox referral and libirum taper ED Medical Decision Making - Lab Data Result diagrams: 08/28/21 07:43 08/28/21 07:43 Lab Results 08/28/21 08/28/21 08/28/21 Range/Units 07:43 07:43 07:43 WBC 7.4 (4.5-11.0) K/mm3 RBC 4.21 (3.65-5.03) M/mm3 Hgb 14.2 (11.8-15.2) gm/dl Hct 41.5 (35.5-45.6) % MCV 99 H (84-94) fl MCH 34 H (28-32) pg MCHC 34 (32-34) % RDW 14.9 (13.2-15.2) % Plt Count 192 (140-440) K/mm3 Lymph % (Auto) 15.5 (13.4-35.0) % [place] % (Auto) 5.2 (0.0-7.3) % Eos % (Auto) 0.1 (0.0-4.3) % Baso % (Auto) 0.4 (0.0-1.8) % Lymph # (Auto) 1.1 L (1.2-5.4) K/mm3 [place] # (Auto) 0.4 (0.0-0.8) K/mm3 Eos # (Auto) 0.0 (0.0-0.4) K/mm3 Baso # (Auto) 0.0 (0.0-0.1) K/mm3 Seg Neutrophils % 78.8 H (40.0-70.0) % Seg Neutrophils # 5.8 (1.8-7.7) K/mm3 Sodium 140 (137-145) mmol/L Potassium 4.2 (3.6-5.0) mmol/L Chloride 101.2 (98-107) mmol/L Carbon Dioxide 26 (22-30) mmol/L Anion Gap 17 mmol/L BUN 15 (9-20) mg/dL Creatinine 1.0 (0.8-1.3) mg/dL Estimated GFR > 60 ml/min BUN/Creatinine Ratio 15 % Glucose 129 H (75-100) mg/dL Calcium 9.5 (8.4-10.2) mg/dL Magnesium (1.7-2.3) mg/dL Urine Color (Yellow) Urine Turbidity (Clear) Urine pH (5.0-7.0) Ur Specific [place] (1.003-1.030) Urine Protein (Negative) mg/dL Urine Glucose (UA) (Negative) mg/dL Urine Ketones (Negative) mg/dL Urine Blood (Negative) Urine Nitrite (Negative) Urine Bilirubin (Negative) Urine Urobilinogen (<2.0) mg/dL Ur Leukocyte Esterase (Negative) Urine WBC (Auto) (0.0-6.0) /HPF Urine RBC (Auto) (0.0-6.0) /HPF U Epithel Cells (Auto) (0-13.0) /HPF Urine Mucus /HPF Salicylates < 0.3 L (2.8-20.0) mg/dL Urine Opiates Screen Urine Methadone Screen Acetaminophen (10.0-30.0) ug/mL Ur Barbiturates Screen Ur Phencyclidine Scrn Ur Amphetamines Screen U Benzodiazepines Scrn Urine Cocaine Screen U Marijuana (THC) Screen Drugs of Abuse Note Plasma/Serum Alcohol (0-0.07) % 08/28/21 08/28/21 08/28/21 Range/Units 07:43 07:43 08:14 WBC (4.5-11.0) K/mm3 RBC (3.65-5.03) M/mm3 Hgb (11.8-15.2) gm/dl Hct (35.5-45.6) % MCV (84-94) fl MCH (28-32) pg MCHC (32-34) % RDW (13.2-15.2) % Plt Count (140-440) K/mm3 Lymph % (Auto) (13.4-35.0) % [place] % (Auto) (0.0-7.3) % Eos % (Auto) (0.0-4.3) % Baso % (Auto) (0.0-1.8) % Lymph # (Auto) (1.2-5.4) K/mm3 [place] # (Auto) (0.0-0.8) K/mm3 Eos # (Auto) (0.0-0.4) K/mm3 Baso # (Auto) (0.0-0.1) K/mm3 Seg Neutrophils % (40.0-70.0) % Seg Neutrophils # (1.8-7.7) K/mm3 Sodium (137-145) mmol/L Potassium (3.6-5.0) mmol/L Chloride (98-107) mmol/L Carbon Dioxide (22-30) mmol/L Anion Gap mmol/L BUN (9-20) mg/dL Creatinine (0.8-1.3) mg/dL Estimated GFR ml/min BUN/Creatinine Ratio % Glucose (75-100) mg/dL Calcium (8.4-10.2) mg/dL Magnesium 2.40 H (1.7-2.3) mg/dL Urine Color (Yellow) Urine Turbidity (Clear) Urine pH (5.0-7.0) Ur Specific [place] (1.003-1.030) Urine Protein (Negative) mg/dL Urine Glucose (UA) (Negative) mg/dL Urine Ketones (Negative) mg/dL Urine Blood (Negative) Urine Nitrite (Negative) Urine Bilirubin (Negative) Urine Urobilinogen (<2.0) mg/dL Ur Leukocyte Esterase (Negative) Urine WBC (Auto) (0.0-6.0) /HPF Urine RBC (Auto) (0.0-6.0) /HPF U Epithel Cells (Auto) (0-13.0) /HPF Urine Mucus /HPF Salicylates (2.8-20.0) mg/dL Urine Opiates Screen Urine Methadone Screen Acetaminophen 5.0 L (10.0-30.0) ug/mL Ur Barbiturates Screen Ur Phencyclidine Scrn Ur Amphetamines Screen U Benzodiazepines Scrn Urine Cocaine Screen U Marijuana (THC) Screen Drugs of Abuse Note Plasma/Serum Alcohol < 0.01 (0-0.07) % 08/28/21 08/28/21 Range/Units 08:18 08:18 WBC (4.5-11.0) K/mm3 RBC (3.65-5.03) M/mm3 Hgb (11.8-15.2) gm/dl Hct (35.5-45.6) % MCV (84-94) fl MCH (28-32) pg MCHC (32-34) % RDW (13.2-15.2) % Plt Count (140-440) K/mm3 Lymph % (Auto) (13.4-35.0) % [place] % (Auto) (0.0-7.3) % Eos % (Auto) (0.0-4.3) % Baso % (Auto) (0.0-1.8) % Lymph # (Auto) (1.2-5.4) K/mm3 [place] # (Auto) (0.0-0.8) K/mm3 Eos # (Auto) (0.0-0.4) K/mm3 Baso # (Auto) (0.0-0.1) K/mm3 Seg Neutrophils % (40.0-70.0) % Seg Neutrophils # (1.8-7.7) K/mm3 Sodium (137-145) mmol/L Potassium (3.6-5.0) mmol/L Chloride (98-107) mmol/L Carbon Dioxide (22-30) mmol/L Anion Gap mmol/L BUN (9-20) mg/dL Creatinine (0.8-1.3) mg/dL Estimated GFR ml/min BUN/Creatinine Ratio % Glucose (75-100) mg/dL Calcium (8.4-10.2) mg/dL Magnesium (1.7-2.3) mg/dL Urine Color Yellow (Yellow) Urine Turbidity Clear (Clear) Urine pH 5.0 (5.0-7.0) Ur Specific [place] 1.021 (1.003-1.030) Urine Protein <15 mg/dl (Negative) mg/dL Urine Glucose (UA) Neg (Negative) mg/dL Urine Ketones Neg (Negative) mg/dL Urine Blood Neg (Negative) Urine Nitrite Neg (Negative) Urine Bilirubin Neg (Negative) Urine Urobilinogen < 2.0 (<2.0) mg/dL Ur Leukocyte Esterase Neg (Negative) Urine WBC (Auto) 1.0 (0.0-6.0) /HPF Urine RBC (Auto) < 1.0 (0.0-6.0) /HPF U Epithel Cells (Auto) < 1.0 (0-13.0) /HPF Urine Mucus Few /HPF Salicylates (2.8-20.0) mg/dL Urine Opiates Screen Negative Urine Methadone Screen Negative Acetaminophen (10.0-30.0) ug/mL Ur Barbiturates Screen Positive Ur Phencyclidine Scrn Negative Ur Amphetamines Screen Negative U Benzodiazepines Scrn Negative Urine Cocaine Screen Negative U Marijuana (THC) Screen Positive Drugs of Abuse Note Disclamer Plasma/Serum Alcohol (0-0.07) % - Medical Decision Making Pt has been cleared by mental health for d/c pt did require dose of Ativan here for alcohol withdrawals. Patient had improvement in symptoms after Ativan. He will be discharged on Librium taper for alcohol withdrawals and encouraged to follow-up as outpatient for further alcohol treatment Critical Care Time: No Critical care attestation.: If time is entered above; I have spent that time in minutes in the direct care of this critically ill patient, excluding procedure time. ED Disposition Clinical Impression: Alcohol dependence, Withdrawal symptoms, alcohol Disposition: 01 HOME / SELF CARE / HOMELESS Is pt being admited?: No Does the pt Need Aspirin: No Condition: Stable Instructions: Alcohol Withdrawal Syndrome, Alcohol Abuse and Dependence Information, Adult Additional Instructions: Take the medication as prescribed. Follow-up with your doctor or doctor/clinic provided. Return if symptoms worsen as indicated by your discharge instructions. In case of an emergency, please contact the following numbers: [place] Crisis and Access Line: Number: Crisis Text Line: (Text START) Number: 722890 Suicide Prevention Line: Number: Emergency Number: 911 SUBSTANCE ABUSE PROGRAMS: Sober Living Alanna: Location: [place], [place] [facility] Address: [address] [place] [address] [facility]: Address: [address] [place] [address] [facility] Rehabilitation: Address: [address] [place] [address] [facility] Community: Address: [address] [place] [address] [facility] Address: [address] [place] [address]. Professional and Agency Contacts To help Resolve Crises (10/10) [place] Crisis Line: Suicide Prevention Line: Crisis Text Line: Text START to 932003 Emergency: 911 Outpatient COMMUNITY Behavioral Health Resources: ALESSANDRAB: [facility] [address] [place] [address] CORTE MADERA: [facility] [address] [place] [address] Monday thru Monday - 8am - 5pm Call to schedule an assessment for mental health and substance abuse programs FERNANDEZ: [facility] Address: [address] [place] [address] Monday thru Monday- 7am-2pm [facility] Address: [address] [place] [address] Monday thrmonday: 8:30AM-5PM Prescriptions: chlordiazePOXIDE [Librium] 25 dose PO DAILY #20 cap Referrals: PRIMARY CARE, [Primary Care Provider] - 3-5 Days [facility] [Provider Group] - 3-5 Days Time of Disposition: 14:17
[2021-08-28 09:44] LABS: Basophils % (Auto) 0.4 % (0.0-1.8); Eosinophils % (Auto) 0.1 % (0.0-4.3); Lymphocytes # (Auto) 1.1 K/mm3 (1.2-5.4); Lymphocytes % (Auto) 15.5 % (13.4-35.0); Monocytes # (Auto) 0.4 K/mm3 (0.0-0.8); Monocytes % (Auto) 5.2 % (0.0-7.3)
--- NOTE | 2021-08-28 13:13 | Consultation ---
History of Present Illness - Reason for Consult Consult date: 08/28/21 Reason for consult: Mental health evaluation - History of Present Psychiatric Illness HPI: 56-year-old male with a past medical history of asthma, thyroid disease, hypertension, and alcohol abuse presents to the hospital with complaints of needing alcohol detox. Patient was here yesterday for back pain, discharge, then went to [place] to request admission for alcohol detox. Patient drinks beer daily and has several beers prior to going to [place]. He waited 8 hours, took a breathalyzer, was told his alcohol level was 0 and therefore he need to come to the hospital for "1012" in order to be admission since he was not acutely intoxicated. Patient appears tremulous upon examination. He denies history of alcohol withdrawal seizures. Patient denies suicidal ideation, h omicidal ideation, or hallucinations. The patient was seen today. he is calm, alert and oriented x2. The patient reports daily alcohol use, states he started drinking at age 14; he reports consuming " a case/ and a half on a daily basis, last used alcohol yesterday. The patient reports been to several psychiatric inpatient and rehab admissions for alcohol detoxification. He states longest sobriety periods as one year. The patient is unable to state stressor. He reports no history of seizures. The patient denies being depressed and denies any current suicidal/homicidal ideation. No withdrawal symptoms noted. PAST PSYCHIATRIC HISTORY: Diagnoses: Alcohol use disorder Suicide attempts or Self-harm behavior: Denies Prior psychiatric hospitalizations: Yes Substance Abuse history: Alcohol Previous psychiatric medications tried: unknown Outpatient treatment: Denies PAST MEDICAL HISTORY: None reported or document Family Psychiatric History: None reported or documented SOCIAL HISTORY Marital Status: Unknown Living Arrangements: Unknown Employment Status: Unknown Access to guns/weapons: Denies Education:Unknown History of Abuse:Denies Legal History: Denies REVIEW OF SYSTEMS Constitutional: Negative for weight loss ENT: Negative for stridor Respiratory: Negative for cough or hemoptysis All other systems reviewed and are negative MENTAL STATUS EXAMINATION General Appearance and Behavior: Age appropriate, wearing appropriate clothes, cooperative, polite with questioning, poor eye contact Cooperation: cooperative Psychomotor Behavior: Psychomotor normal Mood: calm Affect and affective range: congruent with stated mood Thought Process: Goal directed Thought Content: Reality oriented Speech: Normal volume, and tone Suicidal Ideation: Denies Homicidal Ideation: Denies Hallucination: Denies Delusions: None elicited Impulse Control: Limited Insight and Judgment: Limited Memory: limited Attention:attentive Orientation: Alert and oriented Diagnoses: Alcohol use disorder, severe Treatment Plan Medical: per primary Sitter: defer to primary Disposition: Do not recommend acute psychiatric inpatient treatment. [facility] will provide patient with psychiatric outpatient resources. Will sign off. Thanks Case staffed with Dr. Gallardo Medications and Allergies Medications and Allergies Allergies Allergy/AdvReac Type Severity Reaction Status Date / Time No Known Allergies Allergy Verified 12/11/15 19:56 Home Medications Medication Instructions Recorded Confirmed Last Taken Type Lisinopril/Hydrochlorothiazide 1 tab PO QDAY #60 tab 10/01/17 Unknown Rx [Zestoretic 20-12.5 mg] traMADoL [Ultram 50 MG tab] 50 mg PO Q6HR PRN #12 tablet 06/28/20 Unknown Rx Albuterol Sulfate [Proventil Hfa] 6.7 gm IH Q4HR PRN #1 hfa.aer.ad 08/21/20 Unknown Rx Cetirizine HCl [ZyrTEC] 10 mg PO DAILY #30 capsule 08/21/20 Unknown Rx Fluticasone [Flonase] 1 spray NS QDAY #1 bottle 08/21/20 Unknown Rx predniSONE [Deltasone] 20 mg PO DAILY #5 tablet 08/21/20 Unknown Rx Naproxen [Naprosyn] 500 mg PO BID 15 Days #30 tablet 08/27/21 Unknown Rx predniSONE [Deltasone] 20 mg PO QDAY 5 Days #5 tab 08/27/21 Unknown Rx Active Meds: Active Medications Lorazepam (Lorazepam 2 Mg/Ml Vial) 2 mg IV Q1HR PRN PRN Reason: CIWA-Ar 8-15 Last Admin: 08/28/21 09:19 Dose: 2 mg Lorazepam (Lorazepam 2 Mg/Ml Vial) 4 mg IV Q1HR PRN PRN Reason: CIWA-Ar 16- Mental Status Exam - Vital signs Last Vital Signs Temp 97.7 F 08/28/21 08:18 Pulse 65 08/28/21 10:58 Resp 14 08/28/21 10:58 BP 148/88 08/28/21 10:58 Pulse Ox 96 08/28/21 10:58 Results Result Diagrams: 08/28/21 07:43 08/28/21 07:43 Abnormal lab results 08/28/21 08/28/21 08/28/21 Range/Units 07:43 07:43 07:43 MCV 99 H (84-94) fl MCH 34 H (28-32) pg Lymph # (Auto) 1.1 L (1.2-5.4) K/mm3 Seg Neutrophils % 78.8 H (40.0-70.0) % Glucose 129 H (75-100) mg/dL Magnesium (1.7-2.3) mg/dL Salicylates < 0.3 L (2.8-20.0) mg/dL Acetaminophen (10.0-30.0) ug/mL 08/28/21 08/28/21 Range/Units 07:43 08:14 MCV (84-94) fl MCH (28-32) pg Lymph # (Auto) (1.2-5.4) K/mm3 Seg Neutrophils % (40.0-70.0) % Glucose (75-100) mg/dL Magnesium 2.40 H (1.7-2.3) mg/dL Salicylates (2.8-20.0) mg/dL Acetaminophen 5.0 L (10.0-30.0) ug/mL All other labs normal.
[2021-08-28 13:57] VITALS: BP 150/94
== END 2021-08-28 14:50 | disposition home or self-care (01) ==
LOC: ED 01:48
DX: F10.239 Alcohol dependence with withdrawal, unspecified (principal); I10 Essential (primary) hypertension; J45.909 Unspecified asthma, uncomplicated; F17.200 Nicotine dependence, unspecified, uncomplicated; Z79.899 Other long term (current) drug therapy; Y90.9 Presence of alcohol in blood, level not specified
CPT/HCPCS: 36415; 80048; 80307; 81001; 83735; 85025; 96365; 96375; 99284; J2060; J3411; J3490; J7030; 80320; G0480

== ENCOUNTER 2021-09-01 01:03 | Emergency (ER) | payer SELFPAY ==
--- NOTE | 2021-09-01 02:11 | Emergency Department Report ---
ED Psych HPI - General Stated Complaint: LOW BACK PAIN//SUICIDAL THOUGHTS Time Seen by Provider: 09/01/21 01:57 Source: patient Mode of arrival: Ambulatory Limitations: No Limitations - History of Present Illness Initial Comments: 56-year-old male with a past medical history of alcohol abuse and asthma presents to the hospital complaining of suicidal ideation. Patient has been here several times in the last several days. 5 days ago he was here for low back pain x1 month. On the he was here requesting alcohol detox and was subsequently discharged with outpatient resources since he was not suicidal, homicidal, or psychotic at that time. Patient now complains of continued nontraumatic back pain primarily at the tailbone with numbness down both legs. Pain is moderate worse of movement and ambulation. No reports of weakness. Patient drinks beer daily and is acutely intoxicated. He complains of suicidal ideation with plan to walk out in front of a car - Related Data Previous Rx's Medication Instructions Recorded Last Taken Type Lisinopril/Hydrochlorothiazide 1 tab PO QDAY #60 tab 10/01/17 Unknown Rx [Zestoretic 20-12.5 mg] traMADoL [Ultram 50 MG tab] 50 mg PO Q6HR PRN #12 tablet 06/28/20 Unknown Rx Albuterol Sulfate [Proventil Hfa] 6.7 gm IH Q4HR PRN #1 hfa.aer.ad 08/21/20 Unknown Rx Cetirizine HCl [ZyrTEC] 10 mg PO DAILY #30 capsule 08/21/20 Unknown Rx Fluticasone [Flonase] 1 spray NS QDAY #1 bottle 08/21/20 Unknown Rx predniSONE [Deltasone] 20 mg PO DAILY #5 tablet 08/21/20 Unknown Rx Naproxen [Naprosyn] 500 mg PO BID 15 Days #30 tablet 08/27/21 Unknown Rx predniSONE [Deltasone] 20 mg PO QDAY 5 Days #5 tab 08/27/21 Unknown Rx chlordiazePOXIDE [Librium] 25 dose PO DAILY #20 cap 08/28/21 Unknown Rx Allergies Allergy/AdvReac Type Severity Reaction Status Date / Time No Known Allergies Allergy Verified 12/11/15 19:56 ED Review of Systems ROS: Stated complaint: LOW BACK PAIN//SUICIDAL THOUGHTS Other details as noted in HPI Comment: All other systems reviewed and negative ED Past Medical Hx - Past Medical History Hx Hypertension: Yes Hx Asthma: Yes Additional medical history: THYROID, SLEEP MEDICATIONS - Surgical History Additional Surgical History: RIGHT KNEE/RIGHT LEG / EYE, Right ankle surgery - Social History Smoking Status: Current Every Day Smoker Substance Use Type: Alcohol - Medications Home Medications: Home Medications Medication Instructions Recorded Confirmed Last Taken Type Lisinopril/Hydrochlorothiazide 1 tab PO QDAY #60 tab 10/01/17 Unknown Rx [Zestoretic 20-12.5 mg] traMADoL [Ultram 50 MG tab] 50 mg PO Q6HR PRN #12 tablet 06/28/20 Unknown Rx Albuterol Sulfate [Proventil Hfa] 6.7 gm IH Q4HR PRN #1 hfa.aer.ad 08/21/20 Unknown Rx Cetirizine HCl [ZyrTEC] 10 mg PO DAILY #30 capsule 08/21/20 Unknown Rx Fluticasone [Flonase] 1 spray NS QDAY #1 bottle 08/21/20 Unknown Rx predniSONE [Deltasone] 20 mg PO DAILY #5 tablet 08/21/20 Unknown Rx Naproxen [Naprosyn] 500 mg PO BID 15 Days #30 tablet 08/27/21 Unknown Rx predniSONE [Deltasone] 20 mg PO QDAY 5 Days #5 tab 08/27/21 Unknown Rx chlordiazePOXIDE [Librium] 25 dose PO DAILY #20 cap 08/28/21 Unknown Rx ED Physical Exam - Other Other exam information: General: No acute distress Head: Atraumatic Eyes: normal appearance ENT: Moist mucous membranes Neck: Normal appearance, no midline tenderness Chest: Clear to auscultation bilaterally CV: Regular rate and rhythm Abdomen: Soft, normal bowel sounds, nontender, nondistended, no rebound or guarding Back: Normal inspection, no midline lumbar tenderness, Extremity: Normal inspection, full range of motion Neuro: Alert O x 3, no facial asymmetry, speech clear, no gross motor sensory deficit Psych: Appropriate behavior Skin: No rash ED Course Vital Signs 09/01/21 09/01/21 09/01/21 01:59 02:01 02:02 Temperature 98.9 F Pulse Rate 73 83 78 Respiratory 22 13 20 Rate Blood Pressure 126/83 128/83 Blood Pressure 126/83 [Right] O2 Sat by Pulse 94 96 94 Oximetry 09/01/21 02:15 Temperature Pulse Rate 76 Respiratory 26 H Rate Blood Pressure 126/83 Blood Pressure [Right] O2 Sat by Pulse 94 Oximetry ED Medical Decision Making - Lab Data Result diagrams: 09/01/21 02:04 09/01/21 02:04 Lab Results 09/01/21 09/01/21 09/01/21 Range/Units 02:04 02:04 02:04 WBC 4.3 L (4.5-11.0) K/mm3 RBC 3.89 (3.65-5.03) M/mm3 Hgb 13.0 (11.8-15.2) gm/dl Hct 38.4 (35.5-45.6) % MCV 99 H (84-94) fl MCH 34 H (28-32) pg MCHC 34 (32-34) % RDW 15.3 H (13.2-15.2) % Plt Count 174 (140-440) K/mm3 Lymph % (Auto) 33.8 (13.4-35.0) % Cobb % (Auto) 12.0 H (0.0-7.3) % Eos % (Auto) 7.6 H (0.0-4.3) % Baso % (Auto) 1.4 (0.0-1.8) % Lymph # (Auto) 1.5 (1.2-5.4) K/mm3 Cobb # (Auto) 0.5 (0.0-0.8) K/mm3 Eos # (Auto) 0.3 (0.0-0.4) K/mm3 Baso # (Auto) 0.1 (0.0-0.1) K/mm3 Seg Neutrophils % 45.2 (40.0-70.0) % Seg Neutrophils # 2.0 (1.8-7.7) K/mm3 Sodium 141 (137-145) mmol/L Potassium 4.0 (3.6-5.0) mmol/L Chloride 104.7 (98-107) mmol/L Carbon Dioxide 24 (22-30) mmol/L Anion Gap 16 mmol/L BUN 12 (9-20) mg/dL Creatinine 0.9 (0.8-1.3) mg/dL Estimated GFR > 60 ml/min BUN/Creatinine Ratio 13 % Glucose 91 (75-100) mg/dL Calcium 8.5 (8.4-10.2) mg/dL Magnesium 2.10 (1.7-2.3) mg/dL Urine Color (Yellow) Urine Turbidity (Clear) Urine pH (5.0-7.0) Ur Specific Dana (1.003-1.030) Urine Protein (Negative) mg/dL Urine Glucose (UA) (Negative) mg/dL Urine Ketones (Negative) mg/dL Urine Blood (Negative) Urine Nitrite (Negative) Urine Bilirubin (Negative) Urine Urobilinogen (<2.0) mg/dL Ur Leukocyte Esterase (Negative) Urine WBC (Auto) (0.0-6.0) /HPF Urine RBC (Auto) (0.0-6.0) /HPF Salicylates < 0.3 L (2.8-20.0) mg/dL Urine Opiates Screen Urine Methadone Screen Acetaminophen (10.0-30.0) ug/mL Ur Barbiturates Screen Ur Phencyclidine Scrn Ur Amphetamines Screen U Benzodiazepines Scrn Urine Cocaine Screen U Marijuana (THC) Screen Drugs of Abuse Note Plasma/Serum Alcohol (0-0.07) % 09/01/21 09/01/21 09/01/21 Range/Units 02:04 02:04 02:49 WBC (4.5-11.0) K/mm3 RBC (3.65-5.03) M/mm3 Hgb (11.8-15.2) gm/dl Hct (35.5-45.6) % MCV (84-94) fl MCH (28-32) pg MCHC (32-34) % RDW (13.2-15.2) % Plt Count (140-440) K/mm3 Lymph % (Auto) (13.4-35.0) % Cobb % (Auto) (0.0-7.3) % Eos % (Auto) (0.0-4.3) % Baso % (Auto) (0.0-1.8) % Lymph # (Auto) (1.2-5.4) K/mm3 Cobb # (Auto) (0.0-0.8) K/mm3 Eos # (Auto) (0.0-0.4) K/mm3 Baso # (Auto) (0.0-0.1) K/mm3 Seg Neutrophils % (40.0-70.0) % Seg Neutrophils # (1.8-7.7) K/mm3 Sodium (137-145) mmol/L Potassium (3.6-5.0) mmol/L Chloride (98-107) mmol/L Carbon Dioxide (22-30) mmol/L Anion Gap mmol/L BUN (9-20) mg/dL Creatinine (0.8-1.3) mg/dL Estimated GFR ml/min BUN/Creatinine Ratio % Glucose (75-100) mg/dL Calcium (8.4-10.2) mg/dL Magnesium (1.7-2.3) mg/dL Urine Color Straw (Yellow) Urine Turbidity Clear (Clear) Urine pH 5.0 (5.0-7.0) Ur Specific Dana 1.005 (1.003-1.030) Urine Protein <15 mg/dl (Negative) mg/dL Urine Glucose (UA) Neg (Negative) mg/dL Urine Ketones Neg (Negative) mg/dL Urine Blood Neg (Negative) Urine Nitrite Neg (Negative) Urine Bilirubin Neg (Negative) Urine Urobilinogen < 2.0 (<2.0) mg/dL Ur Leukocyte Esterase Neg (Negative) Urine WBC (Auto) < 1.0 (0.0-6.0) /HPF Urine RBC (Auto) 1.0 (0.0-6.0) /HPF Salicylates (2.8-20.0) mg/dL Urine Opiates Screen Urine Methadone Screen Acetaminophen 5.0 L (10.0-30.0) ug/mL Ur Barbiturates Screen Ur Phencyclidine Scrn Ur Amphetamines Screen U Benzodiazepines Scrn Urine Cocaine Screen U Marijuana (THC) Screen Drugs of Abuse Note Plasma/Serum Alcohol 0.19 H (0-0.07) % 09/01/21 Range/Units 02:49 WBC (4.5-11.0) K/mm3 RBC (3.65-5.03) M/mm3 Hgb (11.8-15.2) gm/dl Hct (35.5-45.6) % MCV (84-94) fl MCH (28-32) pg MCHC (32-34) % RDW (13.2-15.2) % Plt Count (140-440) K/mm3 Lymph % (Auto) (13.4-35.0) % Cobb % (Auto) (0.0-7.3) % Eos % (Auto) (0.0-4.3) % Baso % (Auto) (0.0-1.8) % Lymph # (Auto) (1.2-5.4) K/mm3 Cobb # (Auto) (0.0-0.8) K/mm3 Eos # (Auto) (0.0-0.4) K/mm3 Baso # (Auto) (0.0-0.1) K/mm3 Seg Neutrophils % (40.0-70.0) % Seg Neutrophils # (1.8-7.7) K/mm3 Sodium (137-145) mmol/L Potassium (3.6-5.0) mmol/L Chloride (98-107) mmol/L Carbon Dioxide (22-30) mmol/L Anion Gap mmol/L BUN (9-20) mg/dL Creatinine (0.8-1.3) mg/dL Estimated GFR ml/min BUN/Creatinine Ratio % Glucose (75-100) mg/dL Calcium (8.4-10.2) mg/dL Magnesium (1.7-2.3) mg/dL Urine Color (Yellow) Urine Turbidity (Clear) Urine pH (5.0-7.0) Ur Specific Dana (1.003-1.030) Urine Protein (Negative) mg/dL Urine Glucose (UA) (Negative) mg/dL Urine Ketones (Negative) mg/dL Urine Blood (Negative) Urine Nitrite (Negative) Urine Bilirubin (Negative) Urine Urobilinogen (<2.0) mg/dL Ur Leukocyte Esterase (Negative) Urine WBC (Auto) (0.0-6.0) /HPF Urine RBC (Auto) (0.0-6.0) /HPF Salicylates (2.8-20.0) mg/dL Urine Opiates Screen Presumptive negative Urine Methadone Screen Presumptive negative Acetaminophen (10.0-30.0) ug/mL Ur Barbiturates Screen Presumptive positive Ur Phencyclidine Scrn Presumptive negative Ur Amphetamines Screen Presumptive negative U Benzodiazepines Scrn Presumptive negative Urine Cocaine Screen Presumptive negative U Marijuana (THC) Screen Presumptive positive Drugs of Abuse Note Disclamer Plasma/Serum Alcohol (0-0.07) % - Radiology Data Radiology results: report reviewed LUMBAR SPINE 3 VIEWS INDICATION / CLINICAL INFORMATION: lower back pain. COMPARISON: None available. FINDINGS: VERTEBRAE: No acute fracture. Grade 1 anterolisthesis of L5 on S1. DISC SPACES / FACET JOINTS:Moderate facet degenerative changes and spondylolysis of the lower lumbar facets. PARASPINAL SOFT TISSUES:No significant abnormality. ADDITIONAL FINDINGS: None. IMPRESSION: 1. Moderate degenerative changes of the lower lumbar spine with facet arthropathy at L4-5 and L5-S1 and spondylolysis at L5-S1 resulting in grade 1 anterolisthesis. - Medical Decision Making 56-year male presents to the hospital with suicidal ideation acute alcohol intoxication. Patient placed on 1013. Patient has ongoing chronic lower back pain with arthritis seen on x-ray. Patient is medically cleared and awaiting mental health evaluation for possible inpatient treatment. CIWA protocol will be initiated Critical Care Time: No Critical care attestation.: If time is entered above; I have spent that time in minutes in the direct care of this critically ill patient, excluding procedure time. ED Disposition Clinical Impression: Alcohol abuse, Suicidal ideation, Lumbar degenerative disc disease, Medical clearance for psychiatric admission Disposition: [address] [place] [address] Is pt being admited?: No Condition: Stable Time of Disposition: 04:42
[2021-09-01 02:26] LABS: Basophils # (Auto) 0.1 K/mm3 (0.0-0.1); Basophils % (Auto) 1.4 % (0.0-1.8); Eosinophils # (Auto) 0.3 K/mm3 (0.0-0.4); Eosinophils % (Auto) 7.6 % (0.0-4.3); Hematocrit 38.4 % (35.5-45.6); Lymphocytes # (Auto) 1.5 K/mm3 (1.2-5.4); Lymphocytes % (Auto) 33.8 % (13.4-35.0); Mean Corpuscular HGB Conc 34 % (32-34); Mean Corpuscular Volume 99 fl (84-94); Monocytes # (Auto) 0.5 K/mm3 (0.0-0.8); Platelet Count 174 K/mm3 (140-440); Red Blood Count 3.89 M/mm3 (3.65-5.03); Red Cell Distribution Width 15.3 % (13.2-15.2)
[2021-09-01 02:40] LABS: BUN/Creatinine Ratio 13; Blood Urea Nitrogen 12 mg/dL (9-20); Calcium 8.5 mg/dL (8.4-10.2); Hemolysis Index 4
[2021-09-01 03:03] LABS: Bilirubin,Urine NEG (Negative); Blood,Urine NEG (Negative); Color,Urine Straw (Yellow); Protein,Urine <15 mg/dL mg/dL (Negative); Urobilinogen,Urine < 2.0 mg/dL (<2.0)
[2021-09-01 03:05] LABS: WBC,Urine < 1.0 /HPF (0.0-6.0)
[2021-09-01 03:11] LABS: Amphetamine Screen,Urine PRESUMPTIVE NEGATIVE; Benzodiazepines Screen,Urine PRESUMPTIVE NEGATIVE; Cannabinoid Screen,Urine PRESUMPTIVE POSITIVE; Cocaine Screen,Urine PRESUMPTIVE NEGATIVE; Methadone Screen,Urine PRESUMPTIVE NEGATIVE; Opiate Screen,Urine PRESUMPTIVE NEGATIVE
--- NOTE | 2021-09-01 03:30 | XRay Report ---
LUMBAR SPINE 3 VIEWS INDICATION / CLINICAL INFORMATION: lower back pain. COMPARISON: None available. FINDINGS: VERTEBRAE: No acute fracture. Grade 1 anterolisthesis of L5 on S1. DISC SPACES / FACET JOINTS:Moderate facet degenerative changes and spondylolysis of the lower lumbar facets. PARASPINAL SOFT TISSUES:No significant abnormality. ADDITIONAL FINDINGS: None. IMPRESSION: 1. Moderate degenerative changes of the lower lumbar spine with facet arthropathy at L4-5 and L5-S1 a nd spondylolysis at L5-S1 resulting in grade 1 anterolisthesis. Signer Name: Anthony Walter II, MD Signed: 09/01/2021 3:26 AM Workstation Name: [id number]
[2021-09-01] MEDS ORDERED: LORazepam 2 MG/ML VIAL IV PRN (04:43)
[2021-09-01] MEDS ORDERED: LORazepam 2 MG TAB PO PRN (04:43)
[2021-09-01] MEDS ORDERED: KETOROLAC 30 MG/1 ML INJ ONE (08:09)
[2021-09-01] MEDS ORDERED: KETOROLAC 30 MG/1 ML INJ IM ONE (08:15)
[2021-09-01] MEDS: LORazepam 2 MG TAB PO PRN ×2 (08:16→19:53)
[2021-09-01] MEDS ORDERED: HALOPERIDOL LACTATE 5 MG/1 ML INJ IM ONE (08:39)
[2021-09-01] MEDS ORDERED: diphenhydrAMINE 50 MG/ML VIAL IM ONE (08:39)
--- NOTE | 2021-09-01 08:54 | Event Note ---
Date: 09/01/21 I was called to the room patient asking for pain medication and being belligerent. Patient was being loud and screaming and yelling. He also asked for nicotine patch. We will go ahead and give patient Ativan, Benadryl and Haldol for symptomatic relief.
--- NOTE | 2021-09-01 11:35 | Consultation ---
History of Present Illness - Reason for Consult Consult date: 09/01/21 Reason for consult: mental health evaluation - History of Present Psychiatric Illness HPI: 56-year-old male with a past medical history of alcohol abuse and asthma presents to the hospital complaining of suicidal ideation. Patient has been here several times in the last several days. 5 days ago he was here for low back pain x1 month. On the he was here requesting alcohol detox and was subsequently discharged with outpatient resources since he was not suicidal, homicidal, or psychotic at that time. Patient now complains of continued nontraumatic back pain primarily at the tailbone with numbness down both legs. Pain is moderate worse of movement and ambulation. No reports of weakness. Patient drinks beer daily and is acutely intoxicated. He complains of suicidal ideation with plan to walk out in front of a car Per Note: I was called to the room patient asking for pain medication and being belligerent. Patient was being loud and screaming and yelling. He also asked for nicotine patch. We will go ahead and give patient Ativan, Benadryl and Haldol for symptomatic relief. The patient was seen resting quietly. He recently received IM injections for agitation. Will follow. PAST PSYCHIATRIC HISTORY: PAST MEDICAL HISTORY: None reported or document Family Psychiatric History: None reported or documented SOCIAL HISTORY REVIEW OF SYSTEMS MENTAL STATUS EXAMINATION Diagnoses: Major depressive disorder Alcohol use disorder Treatment Plan 1013 Start [facility] Medical: per primary Sitter: defer to primary Disposition: Recommend acute psychiatric inpatient treatment. Will follow. Thanks Case staffed with Dr. Gallardo Medications and Allergies Medications and Allergies Allergies Allergy/AdvReac Type Severity Reaction Status Date / Time No Known Allergies Allergy Verified 12/11/15 19:56 Home Medications Medication Instructions Recorded Confirmed Last Taken Type Lisinopril/Hydrochlorothiazide 1 tab PO QDAY #60 tab 10/01/17 Unknown Rx [Zestoretic 20-12.5 mg] traMADoL [Ultram 50 MG tab] 50 mg PO Q6HR PRN #12 tablet 06/28/20 Unknown Rx Albuterol Sulfate [Proventil Hfa] 6.7 gm IH Q4HR PRN #1 hfa.aer.ad 08/21/20 Unknown Rx Cetirizine HCl [ZyrTEC] 10 mg PO DAILY #30 capsule 08/21/20 Unknown Rx Fluticasone [Flonase] 1 spray NS QDAY #1 bottle 08/21/20 Unknown Rx predniSONE [Deltasone] 20 mg PO DAILY #5 tablet 08/21/20 Unknown Rx Naproxen [Naprosyn] 500 mg PO BID 15 Days #30 tablet 08/27/21 Unknown Rx predniSONE [Deltasone] 20 mg PO QDAY 5 Days #5 tab 08/27/21 Unknown Rx chlordiazePOXIDE [Librium] 25 dose PO DAILY #20 cap 08/28/21 Unknown Rx Active Meds: Active Medications Lorazepam (Lorazepam 2 Mg Tab) 2 mg PO Q1H PRN PRN Reason: CIWA-Ar 8-15 Last Admin: 09/01/21 08:16 Dose: 2 mg Lorazepam (Lorazepam 2 Mg Tab) 4 mg PO Q1H PRN PRN Reason: CIWA-Ar 16-25 Lorazepam (Lorazepam 2 Mg/Ml Vial) 4 mg IV Q15MIN PRN PRN Reason: CIWA-Ar >25 Mental Status Exam - Vital signs Last Vital Signs Temp 98.9 F 09/01/21 02:02 Pulse 76 09/01/21 02:30 Resp 16 09/01/21 06:59 BP 162/90 09/01/21 07:40 Pulse Ox 96 09/01/21 06:59 Results Result Diagrams: 09/01/21 02:04 09/01/21 02:04 Abnormal lab results 09/01/21 09/01/21 09/01/21 Range/Units 02:04 02:04 02:04 WBC 4.3 L (4.5-11.0) K/mm3 MCV 99 H (84-94) fl MCH 34 H (28-32) pg RDW 15.3 H (13.2-15.2) % Cotton % (Auto) 12.0 H (0.0-7.3) % Eos % (Auto) 7.6 H (0.0-4.3) % Salicylates < 0.3 L (2.8-20.0) mg/dL Acetaminophen 5.0 L (10.0-30.0) ug/mL Plasma/Serum Alcohol (0-0.07) % 09/01/21 Range/Units 02:04 WBC (4.5-11.0) K/mm3 MCV (84-94) fl MCH (28-32) pg RDW (13.2-15.2) % Cotton % (Auto) (0.0-7.3) % Eos % (Auto) (0.0-4.3) % Salicylates (2.8-20.0) mg/dL Acetaminophen (10.0-30.0) ug/mL Plasma/Serum Alcohol 0.19 H (0-0.07) % All other labs normal.
[2021-09-01] MEDS ORDERED: NICOTINE 14 MG/24 HR PATCH TD ONE (17:11)
[2021-09-02 08:18] VITALS: BP 158/97
--- NOTE | 2021-09-02 09:43 | Progress Note ---
Subjective - Reason for Consult Consult date: 09/02/21 Reason for consult: mental health evaluation - Chief Complaint Chief complaint: The patient was seen this morning. He reports doing well. He states sleep and appetite as good. Present with mild tremors. He denies any current suicidal/homicidal ideation and denies hallucinations. REVIEW OF SYSTEMS Constitutional: Negative for weight loss ENT: Negative for stridor Respiratory: Negative for cough or hemoptysis All other systems reviewed and are negative MENTAL STATUS EXAMINATION General Appearance and Behavior: Age appropriate, wearing appropriate clothes, cooperative, polite with questioning, poor eye contact Cooperation: cooperative Psychomotor Behavior: Psychomotor normal Mood: calm Affect and affective range: congruent with stated mood Thought Process: Goal directed Thought Content: Reality oriented Speech: Normal volume, and tone Suicidal Ideation: Denies Homicidal Ideation: Denies Hallucination: Denies Delusions: None elicited Impulse Control: Limited Insight and Judgment: Limited Memory: limited Attention:attentive Orientation: Alert and oriented Diagnoses: Alcohol use disorder, severe Treatment Plan Medical: per primary Sitter: defer to primary Disposition: Do not recommend acute psychiatric inpatient treatment. [facility] will provide patient with psychiatric outpatient resources. Will sign off. Thanks Case staffed with Dr. Gallardo Mental Status Exam - Vital signs Last Vital Signs Temp 98.4 F 09/02/21 08:16 Pulse 97 H 09/02/21 08:16 Resp 18 09/02/21 08:16 BP 158/97 09/02/21 08:16 Pulse Ox 97 09/02/21 08:16
--- NOTE | 2021-09-02 12:56 | Event Note ---
Date: 09/02/21 Mr. Nation seen and examined this morning with no complaint. Patient even denies any suicide or homicidal ideation this morning. He said he has been seen by psychiatric and wanted to go home. Patient was seen by psychiatric uncleared to continue home medications. Patient reassured and encouraged to follow-up outpatient.
== END 2021-09-02 14:22 | disposition home or self-care (01) ==
LOC: ED 01:03 → EEVIPCON 01:03 → ED 09-02 14:22
DX: R45.851 Suicidal ideations (principal); F10.10 Alcohol abuse, uncomplicated; M51.36 Other intervertebral disc degeneration, lumbar region; Z13.30 Encounter for screening examination for mental health and behavioral disorders, unspecified; I10 Essential (primary) hypertension; J45.909 Unspecified asthma, uncomplicated; E07.9 Disorder of thyroid, unspecified; Z98.890 Other specified postprocedural states; F17.290 Nicotine dependence, other tobacco product, uncomplicated
CPT/HCPCS: 36415; 72100; 80048; 80307; 81001; 83735; 85025; 96372; 99285; J1200; J1630; J1885; 80320; G0480

== ENCOUNTER 2021-09-19 08:24 | Emergency (ER) | payer SELFPAY ==
[2021-09-19] MEDS ORDERED: predniSONE 20 MG TAB PO ONE (10:15)
[2021-09-19] MEDS ORDERED: KETOROLAC 60 MG/2 ML INJ IM ONE (10:15)
[2021-09-19] MEDS ORDERED: CYCLOBENZAPRINE 10 MG TAB PO ONE (10:15)
--- NOTE | 2021-09-19 10:46 | XRay Report ---
LUMBOSACRAL SPINE, 2 VIEWS INDICATION / CLINICAL INFORMATION: low back pain- COMPARISON: Prior exam 09/01/2021 FINDINGS: Vertebral body heights are maintained. Disc spaces are fairly well-preserved. There is grade 1 spondy lolisthesis at L5-S1 not appreciably changed. There is prominent facet arthropathy at L4-L5 and L5-S1 . Posterior alignment is otherwise normal. No evidence for acute fracture. Overall, the appearance is stable compared with prior exam. IMPRESSION: 1. Grade 1 spondylolisthesis at L5-S1. 2. Prominent facet arthropathy at L4-L5 and L5-S1. Signer Name: Minal Higgins MD Signed: 09/19/2021 10:42 AM Workstation Name: [id number]
--- NOTE | 2021-09-19 10:48 | XRay Report ---
AP PELVIS, SINGLE VIEW INDICATION / CLINICAL INFORMATION: Back pain. COMPARISON: None available. FINDINGS: Mild degenerative changes are present in both hips, age appropriate. No fracture or dislocation. Incidental finding of heterotopic ossification adjacent to the left hip. There is linear foreign object projecting over the sacrum presumably on the patient or related to the patient's clothing. IMPRESSION: 1. No acute abnormality. 2. Mild degenerative change of both hips. 3. Heterotopic ossification adjacent to the left hip. Signer Name: Minal Higgins MD Signed: 09/19/2021 10:44 AM Workstation Name: [id number]
--- NOTE | 2021-09-19 11:00 | Emergency Department Report ---
ED Back Pain/Injury HPI - General Chief Complaint: Back Pain/Injury Stated Complaint: BACK PAIN Time Seen by Provider: 09/19/21 10:05 Source: patient, EMS Limitations: No Limitations - History of Present Illness Initial Comments: This is a 56-year-old male nontoxic, well nourished in appearance, no acute signs of distress presents to the ED with c/o of acute on chronic lower back pain. Patient stated that the past 2 days he was moving and developed this pain. Patient states has history of sciatica nerve pain which is similar symptoms as today. Patient states that pain radiates through to his left lower extremity. Patient denies any trauma. Denies any bladder or bowel instability. Patient denies any urinary symptoms. Denies any fever, chills, nausea, vomiting, headache, stiff neck, chest pain or shortness of breath. Patient denies any numbness or tingling. Denies any allergies. MD Complaint: back pain -: days(s) Similar Symptoms Previously: Yes Place: home Radiation: left leg Severity: mild Severity scale (0 -10): 8 Quality: aching Consistency: intermittent Improves With: immobilization, sitting upright Worsens With: movement, walking Context: while lifting, turning/twisting Associated Symptoms: denies other symptoms. denies: confusion, weakness, chest pain, numbness, difficulty walking, cough, difficulty urinating, diaphoresis, incontinence, fever/chills, constipation, headaches, abdominal pain, loss of appetite, malaise, nausea/vomiting, rash, seizure, shortness of breath, syncope - Related Data Previous Rx's Medication Instructions Recorded Last Taken Type Lisinopril/Hydrochlorothiazide 1 tab PO QDAY #60 tab 10/01/17 Unknown Rx [Zestoretic 20-12.5 mg] traMADoL [Ultram 50 MG tab] 50 mg PO Q6HR PRN #12 tablet 06/28/20 Unknown Rx Albuterol Sulfate [Proventil Hfa] 6.7 gm IH Q4HR PRN #1 hfa.aer.ad 08/21/20 Unknown Rx Cetirizine HCl [ZyrTEC] 10 mg PO DAILY #30 capsule 08/21/20 Unknown Rx Fluticasone [Flonase] 1 spray NS QDAY #1 bottle 08/21/20 Unknown Rx predniSONE [Deltasone] 20 mg PO DAILY #5 tablet 08/21/20 Unknown Rx Naproxen [Naprosyn] 500 mg PO BID 15 Days #30 tablet 08/27/21 Unknown Rx predniSONE [Deltasone] 20 mg PO QDAY 5 Days #5 tab 08/27/21 Unknown Rx chlordiazePOXIDE [Librium] 25 dose PO DAILY #20 cap 08/28/21 Unknown Rx Cyclobenzaprine [Flexeril] 10 mg PO QHS PRN #10 tab 09/19/21 Unknown Rx Naproxen 500 mg PO Q12H PRN #12 tab 09/19/21 Unknown Rx Allergies Allergy/AdvReac Type Severity Reaction Status Date / Time No Known Allergies Allergy Verified 09/19/21 08:27 ED Review of Systems ROS: Stated complaint: BACK PAIN Other details as noted in HPI Comment: All other systems reviewed and negative Constitutional: denies: chills, fever Eyes: denies: eye pain, eye discharge, vision change ENT: denies: ear pain, throat pain Respiratory: denies: cough, shortness of breath, wheezing Cardiovascular: denies: chest pain, palpitations Endocrine: no symptoms reported Gastrointestinal: denies: abdominal pain, nausea, diarrhea Genitourinary: denies: urgency, dysuria Musculoskeletal: back pain. denies: joint swelling, arthralgia Skin: denies: rash, lesions Neurological: denies: headache, weakness, paresthesias Psychiatric: denies: anxiety, depression Hematological/Lymphatic: denies: easy bleeding, easy bruising ED Past Medical Hx - Past Medical History Hx Hypertension: Yes Hx Asthma: Yes Additional medical history: THYROID, SLEEP MEDICATIONS - Surgical History Additional Surgical History: RIGHT KNEE/RIGHT LEG / EYE, Right ankle surgery - Social History Smoking Status: Current Every Day Smoker Substance Use Type: Alcohol - Medications Home Medications: Home Medications Medication Instructions Recorded Confirmed Last Taken Type Lisinopril/Hydrochlorothiazide 1 tab PO QDAY #60 tab 10/01/17 Unknown Rx [Zestoretic 20-12.5 mg] traMADoL [Ultram 50 MG tab] 50 mg PO Q6HR PRN #12 tablet 06/28/20 Unknown Rx Albuterol Sulfate [Proventil Hfa] 6.7 gm IH Q4HR PRN #1 hfa.aer.ad 08/21/20 Unknown Rx Cetirizine HCl [ZyrTEC] 10 mg PO DAILY #30 capsule 08/21/20 Unknown Rx Fluticasone [Flonase] 1 spray NS QDAY #1 bottle 08/21/20 Unknown Rx predniSONE [Deltasone] 20 mg PO DAILY #5 tablet 08/21/20 Unknown Rx Naproxen [Naprosyn] 500 mg PO BID 15 Days #30 tablet 08/27/21 Unknown Rx predniSONE [Deltasone] 20 mg PO QDAY 5 Days #5 tab 08/27/21 Unknown Rx chlordiazePOXIDE [Librium] 25 dose PO DAILY #20 cap 08/28/21 Unknown Rx Cyclobenzaprine [Flexeril] 10 mg PO QHS PRN #10 tab 09/19/21 Unknown Rx Naproxen 500 mg PO Q12H PRN #12 tab 09/19/21 Unknown Rx ED Physical Exam - General Limitations: No Limitations General appearance: alert, in no apparent distress - Head Head exam: Present: atraumatic, normocephalic - Eye Eye exam: Present: normal appearance - Neck Neck exam: Present: normal inspection, full ROM. Absent: lymphadenopathy - Respiratory Respiratory exam: Absent: respiratory distress - Cardiovascular Cardiovascular Exam: Present: regular rate - GI/Abdominal GI/Abdominal exam: Present: soft. Absent: distended, tenderness - Extremities Exam Extremities exam: Present: normal inspection, full ROM, normal capillary refill. Absent: tenderness, joint swelling - Back Exam Back exam: Present: normal inspection, full ROM, paraspinal tenderness (Lumbar paraspinal). Absent: tenderness, CVA tenderness (R), CVA tenderness (L), muscle spasm, vertebral tenderness, rash noted - Expanded Back Exam Expanded Back exam: Absent: saddle anesthesia Back exam: Negative Straight Leg Raising: Left, Right - Neurological Exam Neurological exam: Present: alert, oriented X3, normal gait - Psychiatric Psychiatric exam: Present: normal affect, normal mood - Skin Skin exam: Present: warm, dry, intact, normal color. Absent: rash ED Course Vital Signs 09/19/21 08:25 Temperature 97.6 F Pulse Rate 76 Respiratory 18 Rate Blood Pressure 121/80 [Left] O2 Sat by Pulse 97 Oximetry - Reevaluation(s) Reevaluation #1: 09/19/21 10:58 Patient is speaking in full sentences with no signs of distress noted. ED Medical Decision Making - Radiology Data [facility] [address] [place] [address] XRay Report Signed Patient: BETTY CLINTON JR MR#: [id number] : 1965 Acct:[id number] Age/Sex: 56 / M ADM Date: 09/19/21 Loc: ED Attending Dr: Ordering Physician: REYNALDO DUQUE NP Date of Service: 09/19/21 Procedure(s): XR pelvis 1-2V Accession Number(s): [id number] cc: REYNALDO DUQUE NP Fluoro Time In Minutes: AP PELVIS, SINGLE VIEW INDICATION / CLINICAL INFORMATION: Back pain. COMPARISON: None available. FINDINGS: Mild degenerative changes are present in both hips, age appropriate. No fracture or dislocation. Incidental finding of heterotopic ossification adjacent to the left hip. There is linear foreign object projecting over the sacrum presumably on the patient or related to the patient's clothing. IMPRESSION: 1. No acute abnormality. 2. Mild degenerative change of both hips. 3. Heterotopic ossification adjacent to the left hip. Signer Name: Minal Higgins MD Signed: 09/19/2021 10:44 AM Workstation Name: [id number] Transcribed By: Dictated By: Minal Higgins MD Electronically Authenticated By: Minal Higgins MD Signed Date/Time: 09/19/21 104 DD/ 104 TD/TT: [address] [address] XRay Report Signed Patient: BETTY CLINTON JR MR#: [id number] : 1965 Acct:[id number] Age/Sex: 56 / M ADM Date: 09/19/21 Loc: ED Attending Dr: Ordering Physician: REYNALDO DUQUE NP Date of Service: 09/19/21 Procedure(s): XR spine lumbosacral 2-3V Accession Number(s): [id number] cc: REYNALDO DUQUE NP Fluoro Time In Minutes: LUMBOSACRAL SPINE, 2 VIEWS INDICATION / CLINICAL INFORMATION: low back pain- COMPARISON: Prior exam 09/01/2021 FINDINGS: Vertebral body heights are maintained. Disc spaces are fairly well-preserved. There is grade 1 spondylolisthesis at L5-S1 not appreciably changed. There is prominent facet arthropathy at L4-L5 and L5-S1. Posterior alignment is otherwise normal. No evidence for acute fracture. Overall, the appearance is stable compared with prior exam. IMPRESSION: 1. Grade 1 spondylolisthesis at L5-S1. 2. Prominent facet arthropathy at L4-L5 and L5-S1. Signer Name: Minal Higgins MD Signed: 09/19/2021 10:42 AM Workstation Name: [id number] Transcribed By: Dictated By: Minal Higgins MD Electronically Authenticated By: Minal Higgins MD Signed Date/Time: 09/19/21 104 DD/ 1040 TD/TT: - Medical Decision Making This is a 56-year-old male that presents with low back strain. Patient is stable was examined by me. There is no spinal tenderness. There is no cauda equina syndrome during examination. No bladder or bowel instability. Patient received medical treatment in the ED which stated that his symptoms has resolved and subsided. Patient stated family member will drive patient home after discharge due to possible drowsiness of Flexeril. Patient is notified of the imaging results with no questions noted by the patient. Patient is discharged with muscle relaxant and naproxen. Patient was instructed not to operate any machinery while taking muscle relaxant as they cause her drowsiness. Patient was referred to Follow-up with a primary care doctor in 3-5 days or if symptoms worsen and continue return to emergency room as soon as possible. At time of discharge, the patient does not seem toxic or ill in appearance. No acute signs of distress noted. Patient agrees to discharge treatment plan of care. No further questions noted by the patient. This chart is dictated with using [employer] Dictation Program Critical care attestation.: If time is entered above; I have spent that time in minutes in the direct care of this critically ill patient, excluding procedure time. ED Disposition Clinical Impression: Chronic back pain Qualifiers: Back pain location: low back pain Back pain laterality: bilateral Sciatica presence: with sciatica Sciatica laterality: sciatica of left side Qualified Code(s): M54.42 - Lumbago with sciatica, left side; G89.29 - Other chronic pain Disposition: 01 HOME / SELF CARE / HOMELESS Is pt being admited?: No Does the pt Need Aspirin: No Condition: Stable Instructions: Chronic Back Pain Additional Instructions: Follow-up with your primary care doctor in 3-5 days or if symptoms worsen such as bladder or bowel stability, chest pain, short of breath, numbness or tingling sensation in extremities, headache, dizziness, visual changes, nausea vomiting, or abdominal pain, return back to emergency room as was possible. Take naproxen and Flexeril as prescribed. Do not operate heavy machinery while taking Flexeril due to sedation Prescriptions: Cyclobenzaprine [Flexeril] 10 mg PO QHS PRN #10 tab PRN Reason: Muscle Spasm Naproxen 500 mg PO Q12H PRN #12 tab PRN Reason: Pain , Severe (7-10) Referrals: PRIMARY CAREMD [Referring] - 3-5 Days JENAE MARIE MD [Staff Physician] - 3-5 Days Time of Disposition: 11:06
[2021-09-19 11:39] VITALS: BP 145/97
== END 2021-09-19 11:51 | disposition home or self-care (01) ==
LOC: ED 08:24
DX: M54.50 Low back pain, unspecified (principal); I10 Essential (primary) hypertension; J45.909 Unspecified asthma, uncomplicated; F17.200 Nicotine dependence, unspecified, uncomplicated; Z79.899 Other long term (current) drug therapy
CPT/HCPCS: 72100; 72170; 96372; 99283; J1885